=== PATIENT | female | born 1975 | race Caucasian/White ===

== ENCOUNTER 2017-07-24 20:34 | Inpatient (IN) ==
[2017-07-24 21:49] LABS: Basophils % 0.6 %; Eosinophils # 0.1 K/mcL (0.0-0.6); Eosinophils % 2.1 %; Hematocrit 34.5 % (35.3-44.9); Hemoglobin 11.4 g/dL (11.5-15.4); Immature Granulocytes % 0.4 % (0-4); Lymphocytes # 1.5 K/mcL (0.6-4.6); Lymphocytes % 32.2 %; Mean Corpuscular Hemoglobin 30.5 pg (28.0-33.3); Mean Corpuscular Volume 92.2 fL (83.0-100.0); Mean Platelet Volume 10.3 fL (9.4-12.4); Monocytes # 0.4 K/mcL (0.0-1.3); Monocytes % 7.4 %; Neutrophils # 2.7 K/mcL (1.6-8.9); Platelet Count 242 K/mcL (140-400); Red Blood Count 3.74 M/mcL (3.82-4.97); Red Cell Distribution Width 12.8 % (11.5-14.5); Segmented Neutrophils % 57.3 %
[2017-07-24 21:58] LABS: Calcium 9.2 mg/dL (8.6-10.8); Potassium 4.2 mEq/L (3.5-4.5)
[2017-07-25 02:16] LABS: Bilirubin,Urine Negative (Negative); Blood,Urine Negative (Negative); Clarity,Urine Clear (Clear); Color,Urine Yellow (Yellow); Glucose,Urine (UA) >=1000 mg/dL (Normal); Ketones,Urine 15 mg/dL (Negative); Leukocyte Esterase,Urine Negative (Negative); Nitrite,Urine Negative (Negative); Protein,Urine Negative (Neg-Trace); Specific Gravity,Urine > 1.030 (1.010-1.025); Urobilinogen,Urine Normal (Normal)
[2017-07-25] MEDS ORDERED: *HR* Dextrose 50 % in Water (Syg) 50 ML SYRINGE IVP PRN ×2 (02:24→07:01)
--- NOTE | 2017-07-25 02:27 | Emergency Department Note ---
Disposition Clinical Impression: Colitis, Failure of outpatient treatment, Hyperglycemia Condition: Fair Referrals: Nikolas Crenshaw MD [Primary Care Provider] - Forms: ED Satisfaction Letter Time of Disposition: 04:01 General Adult HPI - General Chief complaint: ED GI Bleed Stated complaint: gi bleed, abd pain Time Seen by Provider: 07/25/17 01:41 Source: patient Limitations: no limitations Nursing Notes Reviewed: Yes Vital Signs Reviewed: Yes - History of Present Illness HPI Narrative: Ms. Baum, a 41-year-old female, presents from home by POV for evaluation of abdominal pain. She was diagnosed 3 days ago with colitis by this department via CT and discharged with by mouth Cipro and Flagyl. She followed up with her primary care physician today. Her symptoms have not improved; her abdominal pain has actually worsened. She has bashir red blood per rectum. Additionally, because of her inability to tolerate by mouth intake, her blood glucose has been erratic. Patient is type I diabetic on a Medtronic insulin pump. PMH: Gastroparesis with gastric pacemaker. J-tube removed September 2016. ROS: Positive: Abdominal pain, hyperglycemia, chills, nausea, vomiting, inability to tolerate by mouth intake, hematochezia Pain Scale: 8 - Related Data Home Medications Medication Instructions Recorded Confirmed Dexilant 12/26/16 Insulin Pump Cartridge 12/26/16 Modifinil 12/26/16 Synthroid 12/26/16 Tylenol 12/26/16 Previous Rx's Medication Instructions Recorded Acetaminophen [Tylenol] 500 mg PO Q6HR PRN #20 tablet 07/14/17 Amoxicillin 875 mg PO BID #20 tablet 07/14/17 Fexofenadine/Pseudoephedrine 1 each PO BID #6 tab.er.12h 07/14/17 [Lizbeth-D 12 Hour Tablet] Fluticasone Propionate Nasal 1 spray NS DAILY #1 bottle 07/14/17 [Flonase] Magic Mouthwash [Magic Mouthwash 10 ml PO QID PRN #240 ml 07/14/17 BLM] Ciprofloxacin HCl [Cipro] 500 mg PO BID #20 tablet 07/19/17 HYDROcodone/Acet 5/325 mg [[place] 1 tab PO Q6H PRN #8 tab 07/19/17 5-325 mg] Ondansetron HCl [Zofran] 4 mg PO TID #21 tablet 07/19/17 metroNIDAZOLE [Metronidazole] 500 mg PO TID #30 tablet 07/19/17 Allergies Allergy/AdvReac Type Severity Reaction Status Date / Time azithromycin [From Zithromax] Allergy Rash Verified 07/19/17 15:13 metoclopramide [From Reglan] Allergy Rash Verified 07/19/17 15:13 prochlorperazine Allergy Rash Verified 07/19/17 15:13 [From Compazine] Sulfa (Sulfonamide Allergy Rash Verified 07/19/17 15:13 Antibiotics) All systems ED: reviewed and negative except as stated. Past Medical History - Past Medical History Medical history: Reports: diabetes, other Surgical history: Reports: hysterectomy, other Psychiatric history: Reports: anxiety, depression [employer] history: Reports: no [employer] history - Social History Smoking Status: Current every day smoker Smokeless Tobacco Status: No Alcohol use: Reports: none Drug use: Reports: none Physical Exam Vital Signs Reviewed General: Patient is alert, oriented, and in moderate distress from her abdominal pain. She is also shivering with chills. HEENT: No facial asymmetry. Head is normocephalic and atraumatic. PERRLA, EOMI. oral mucosa dry. Trachea midline. Cardiovascular: Heart tachycardic rate and regular rhythm without clicks, rubs, gallops, or murmurs. No JVD. PMI nondisplaced. Respiratory: Symmetric chest rise with good respiratory effort. Bilateral breath sounds are clear without wheezing, crackles, or rhonchi. Abdomen: Bowel sounds present normoactive x-4 quadrants. Abdomen is soft, nondistended, and nontender. No organomegaly noted. Psych: Patient's affect is appropriate for situation. - General Limitations: no limitations General appearance: alert, in no apparent distress Course Course Narrative: Patient presents from home for evaluation of continued abdominal pain. She was diagnosed with colitis in this department 6 days ago and discharged with by mouth Esdrasro and Flagyl. She properly followed up with her primary care physician 4 days ago. Her symptoms have since persisted and worsened. Patient has had decreased by mouth intake, chills, continued hematochezia. Patient is type I diabetic with gastric pacemaker secondary to gastroparesis. Patient was hypertensive and tachycardic on intake vitals. With fluids, pain control, nausea control, her heart rate lowered as did her blood pressure. Patient has mild anemia however this is consistent with her baseline. Patient has elevated creatinine-this appears to be slightly worse than her baseline. Likely secondary to dehydration secondary to anorexia secondary to her colitis. Patient's bedside blood glucose is in the 500s. Will provide 10 units regular insulin at this time. Her Medtronic insulin pump has been disconnected from her body and is on suspend. --> CT abdomen and pelvis with IV contrast dated 07/19 as read by radiology below: CT/CT abd pelvis w iv no oral IMPRESSION: Nonvisualization the appendix. Question wall thickening of the right and possibly transverse colon. Correlation for infectious or inflammatory colitis is recommended. D/ / Yamilex Plaza Cha, MD / Yamilex Plaza Cha, MD Interpreting Provider: Yamilex Plaza Cha, MD Vital Signs Temperature 98.5 F 07/24/17 20:36 Pulse Rate 113 07/24/17 20:36 Respiratory Rate 20 07/24/17 20:36 Blood Pressure 174/108 07/24/17 20:36 O2 Sat by Pulse Oximetry 100 07/24/17 20:36 Temperature 98.5 F 07/24/17 20:36 Pulse Rate 75 07/25/17 03:41 Respiratory Rate 18 07/25/17 03:41 Blood Pressure 124/75 07/25/17 03:41 O2 Sat by Pulse Oximetry 100 07/25/17 03:41 Oxygen Delivery Oxygen Delivery Room Air Medical Decision Making - Lab Data Result diagrams: 07/24/17 21:36 07/24/17 21:36 Lab Results 07/24/17 07/24/17 07/24/17 Range/Units 21:36 21:36 21:36 WBC 4.8 (4.3-11.1) K/mcL RBC 3.74 L (3.82-4.97) M/mcL Hgb 11.4 L (11.5-15.4) g/dL Hct 34.5 L (35.3-44.9) % MCV 92.2 (83.0-100.0) fL MCH 30.5 (28.0-33.3) pg MCHC 33.0 (31.6-35.5) g/dL RDW 12.8 (11.5-14.5) % Plt Count 242 (140-400) K/mcL MPV 10.3 (9.4-12.4) fL Immature Gran % 0.4 (0-4) % Seg Neutrophils % 57.3 % Lymphocytes % 32.2 % Monocytes % 7.4 % Eosinophils % 2.1 % Basophils % 0.6 % Neutrophils # 2.7 (1.6-8.9) K/mcL Lymphocytes # 1.5 (0.6-4.6) K/mcL Monocytes # 0.4 (0.0-1.3) K/mcL Eosinophils # 0.1 (0.0-0.6) K/mcL Basophils # 0.0 (0.0-0.2) K/mcL Sodium 136 (136-145) mEq/L Potassium 4.2 (3.5-4.5) mEq/L Chloride 103 (98-109) mEq/L Carbon Dioxide 23 (19-29) mEq/L BUN 15 (7-20) mg/dL Creatinine 1.28 H (0.57-1.11) mg/dL Est GFR ( Amer) 56 L (> 60) Est GFR (Non-Af Amer) 46 L (> 60) BUN/Creatinine Ratio 12 (6-26) Glucose 359 H (70-99) mg/dL POC Glucose (58-89) Calculated Osmolality 297 (280-300) Lactic Acid (0.5-2.2) mmol/L Calcium 9.2 (8.6-10.8) mg/dL Phosphorus (2.3-4.7) mg/dL Magnesium (1.6-2.6) mg/dL Beta-Hydroxybutyric Acd (0.02-0.27) mmol/L Beta HCG, Quant (0-4) mIU/ml Urine Color (Yellow) Urine Clarity (Clear) Urine pH (5.0-8.0) pH Units Ur Specific [place] (1.010-1.025) Urine Protein (Neg-Trace) mg/dL Urine Glucose (UA) (Normal) mg/dL Urine Ketones (Negative) mg/dL Urine Blood (Negative) Urine Nitrite (Negative) Urine Bilirubin (Negative) Urine Urobilinogen (Normal) mg/dL Ur Leukocyte Esterase (Negative) Blood Type A NEGATIVE Antibody Screen POSITIVE Antibody Identification Anti-K 07/25/17 07/25/17 07/25/17 Range/Units 02:06 02:20 02:21 WBC (4.3-11.1) K/mcL RBC (3.82-4.97) M/mcL Hgb (11.5-15.4) g/dL Hct (35.3-44.9) % MCV (83.0-100.0) fL MCH (28.0-33.3) pg MCHC (31.6-35.5) g/dL RDW (11.5-14.5) % Plt Count (140-400) K/mcL MPV (9.4-12.4) fL Immature Gran % (0-4) % Seg Neutrophils % % Lymphocytes % % Monocytes % % Eosinophils % % Basophils % % Neutrophils # (1.6-8.9) K/mcL Lymphocytes # (0.6-4.6) K/mcL Monocytes # (0.0-1.3) K/mcL Eosinophils # (0.0-0.6) K/mcL Basophils # (0.0-0.2) K/mcL Sodium (136-145) mEq/L Potassium (3.5-4.5) mEq/L Chloride (98-109) mEq/L Carbon Dioxide (19-29) mEq/L BUN (7-20) mg/dL Creatinine (0.57-1.11) mg/dL Est GFR ( Amer) (> 60) Est GFR (Non-Af Amer) (> 60) BUN/Creatinine Ratio (6-26) Glucose (70-99) mg/dL POC Glucose 498 H* 521 H* (58-89) Calculated Osmolality (280-300) Lactic Acid (0.5-2.2) mmol/L Calcium (8.6-10.8) mg/dL Phosphorus (2.3-4.7) mg/dL Magnesium (1.6-2.6) mg/dL Beta-Hydroxybutyric Acd (0.02-0.27) mmol/L Beta HCG, Quant (0-4) mIU/ml Urine Color Yellow (Yellow) Urine Clarity Clear (Clear) Urine pH 6.0 (5.0-8.0) pH Units Ur Specific [place] > 1.030 H (1.010-1.025) Urine Protein Negative (Neg-Trace) mg/dL Urine Glucose (UA) >=1000 H (Normal) mg/dL Urine Ketones 15 H (Negative) mg/dL Urine Blood Negative (Negative) Urine Nitrite Negative (Negative) Urine Bilirubin Negative (Negative) Urine Urobilinogen Normal (Normal) mg/dL Ur Leukocyte Esterase Negative (Negative) Blood Type Antibody Screen Antibody Identification 07/25/17 07/25/17 Range/Units 02:45 02:45 WBC (4.3-11.1) K/mcL RBC (3.82-4.97) M/mcL Hgb (11.5-15.4) g/dL Hct (35.3-44.9) % MCV (83.0-100.0) fL MCH (28.0-33.3) pg MCHC (31.6-35.5) g/dL RDW (11.5-14.5) % Plt Count (140-400) K/mcL MPV (9.4-12.4) fL Immature Gran % (0-4) % Seg Neutrophils % % Lymphocytes % % Monocytes % % Eosinophils % % Basophils % % Neutrophils # (1.6-8.9) K/mcL Lymphocytes # (0.6-4.6) K/mcL Monocytes # (0.0-1.3) K/mcL Eosinophils # (0.0-0.6) K/mcL Basophils # (0.0-0.2) K/mcL Sodium (136-145) mEq/L Potassium (3.5-4.5) mEq/L Chloride (98-109) mEq/L Carbon Dioxide (19-29) mEq/L BUN (7-20) mg/dL Creatinine (0.57-1.11) mg/dL Est GFR ( Amer) (> 60) Est GFR (Non-Af Amer) (> 60) BUN/Creatinine Ratio (6-26) Glucose (70-99) mg/dL POC Glucose (58-89) Calculated Osmolality (280-300) Lactic Acid 1.0 (0.5-2.2) mmol/L Calcium (8.6-10.8) mg/dL Phosphorus 3.4 (2.3-4.7) mg/dL Magnesium 1.5 L (1.6-2.6) mg/dL Beta-Hydroxybutyric Acd > 2.00 H (0.02-0.27) mmol/L Beta HCG, Quant < 1 (0-4) mIU/ml Urine Color (Yellow) Urine Clarity (Clear) Urine pH (5.0-8.0) pH Units Ur Specific [place] (1.010-1.025) Urine Protein (Neg-Trace) mg/dL Urine Glucose (UA) (Normal) mg/dL Urine Ketones (Negative) mg/dL Urine Blood (Negative) Urine Nitrite (Negative) Urine Bilirubin (Negative) Urine Urobilinogen (Normal) mg/dL Ur Leukocyte Esterase (Negative) Blood Type Antibody Screen Antibody Identification Attestation Statement - Attestation Attestation: I, Martin Aragon DO, examined this patient [id number] and my medical decision-making was reviewed with Dr. Leo Babb, Resident Physician. I agree with the documented findings, disposition and treatment plan as described except to the extent set forth below. Please see my progress notes for details. 41-year-old female presents emergency room with complaints of abdominal pain, bloody stool, nausea vomiting and generalized malaise. Seen here 5 days ago diagnosed with colitis with bloody stool. She started on Cipro and Flagyl. Has been trying to tolerate home medications but has not been able to do so. Her glucose continues to climb she is a type I diabetic. Patient has a history of diabetic ketoacidosis. She feels that she is dehydrated and weak. Labs ordered including CBC chemistry VBG, beta hydroxybutyric acid and urinalysis. Chest x-ray also ordered and resulted. Patient does not show any acute signs of gout diabetic ketoacidosis. Fluids to be given. Repeat CT imaging is not going to be done at this time secondary to recent evaluation and imaging study. Patient appears to failed outpatient treatment with poorly controlled diabetes at this time. Patient will require medical admission for evaluation and definitive management of diabetic related issues and poorly controlled colitis. Patient denies any abdominal pain physical exam is otherwise benign. Lungs are clear heart is regular abdomen is soft nontender nondistended with no guarding no rigidity and no peritoneal symptoms. Patient will be observed here in the emergency room until definitive treatment course is completed. See detailed documentation of physical exam, medical decision making process, medical intervention and consultation with the hospitalist for admission and the resident physician's note.
[2017-07-25] MEDS ORDERED: Insulin Human Regular 100 UNIT in 0.9 % Sodium Chloride 100 ML IVC SCH (02:30)
[2017-07-25] MEDS ORDERED: MetroNIDAZOLE 500 MG/100 ML 500 MG/100 ML BAG IVPB ONE (02:39)
[2017-07-25 03:03] LABS: Magnesium 1.5 mg/dL (1.6-2.6); Phosphorous 3.4 mg/dL (2.3-4.7)
[2017-07-25] MEDS: 0.9 % Sodium Chloride 1,000 ML IVC SCH ×3 (03:11→09:15)
[2017-07-25 03:18] LABS: Beta-Hydroxybutyric Acid > 2.00 mmol/L (0.02-0.27)
[2017-07-25] MEDS ORDERED: Insulin Human Regular 10 UNIT in 0.9 % Sodium Chloride 10 ML IV ONE (03:21)
[2017-07-25] MEDS ORDERED: Ondansetron 4 MG/2 ML VIAL IVP ONE (03:22)
[2017-07-25] MEDS ORDERED: *HR* Morphine 2 MG/ML SYRINGE IVP ONE (03:23)
[2017-07-25] MEDS ORDERED: *HR* FentaNYL (PF) 100 MCG/2 ML VIAL IVP ONE (04:25)
[2017-07-25] MEDS ORDERED: Acetaminophen 325 MG TABLET PO PRN (07:01)
[2017-07-25] MEDS ORDERED: Dextrose Gel 15 GM PO PRN ×2 (07:01)
[2017-07-25] MEDS ORDERED: D5% in Water 1,000 ML IVC PRN (07:01)
[2017-07-25] MEDS ORDERED: Ondansetron 4 MG/2 ML VIAL IVP PRN ×2 (07:01→16:47)
[2017-07-25] MEDS ORDERED: Naloxone 0.4 MG/ML INJ IVP PRN (07:01)
[2017-07-25] MEDS ORDERED: Magnesium Sulfate 2 GM in D5% in Water 100 ML IVPB ONE (07:04)
[2017-07-25 08:56] LABS: Chol/HDL Ratio 2.5 (0-4.9); Magnesium 1.4 mg/dL (1.6-2.6)
[2017-07-25 09:08] LABS: Basophils % 0.4 %; Eosinophils # 0.1 K/mcL (0.0-0.6); Eosinophils % 2.1 %; Hematocrit 36.7 % (35.3-44.9); Hemoglobin 11.7 g/dL (11.5-15.4); Immature Granulocytes % 0.2 % (0-4); Lymphocytes # 1.2 K/mcL (0.6-4.6); Mean Corpuscular HGB Conc 31.9 g/dL (31.6-35.5); Mean Corpuscular Hemoglobin 29.8 pg (28.0-33.3); Mean Corpuscular Volume 93.4 fL (83.0-100.0); Mean Platelet Volume 10.3 fL (9.4-12.4); Monocytes # 0.4 K/mcL (0.0-1.3); Monocytes % 7.8 %; Neutrophils # 3.1 K/mcL (1.6-8.9); Platelet Count 222 K/mcL (140-400); Red Blood Count 3.93 M/mcL (3.82-4.97); Red Cell Distribution Width 12.7 % (11.5-14.5); Segmented Neutrophils % 64.5 %
[2017-07-25 09:11] LABS: INR 0.9
[2017-07-25] MEDS: Pantoprazole 40 MG VIAL IVP SCH (09:14)
[2017-07-25 09:27] LABS: Hemoglobin A1C 10.3 %
[2017-07-25 09:30] LABS: Calcium 8.7 mg/dL (8.6-10.8); Potassium 4.3 mEq/L (3.5-4.5)
--- NOTE | 2017-07-25 10:49 | Internal Med History&Physical ---
Date of Encounter: 07/25/17 Time of Encounter: 10:47 Assessment and Plan (1) Colitis Current visit: No Status: Acute reviewed CT of abd results from 07/19/17 She does have transverse colitis mostly infectious .. also concerned for inflammartory too cont supportive and symptomatic care on IVF Clear liquid diet for now on PPI IV and PO analgesics PRN GI consulted for Colonoscopy in AM (2) Abdominal pain Current visit: No Status: Acute due to colitis Qualifiers: Abdominal location: lower abdomen, unspecified Qualified Code(s): R10.30 - Lower abdominal pain, unspecified (3) Failure of outpatient treatment Current visit: Yes Status: Acute (4) GI bleed Current visit: No Status: Acute mostly due to colitis so far stable Hb @ 11.7 cont close monitoring for now no need of transfusions Colonoscopy in AM Qualifiers: GI bleed type/associated pathology: unspecified gastrointestinal hemorrhage type Qualified Code(s): K92.2 - Gastrointestinal hemorrhage, unspecified (5) Diabetes mellitus Current visit: Yes Status: Chronic cont home Insulin pump Qualifiers: Diabetes mellitus type: type 1 Qualified Code(s): E10.9 - Type 1 diabetes mellitus without complications (6) Gastroparesis due to DM Current visit: Yes Status: Chronic s/p Gatsric pacemaker stable now Internal Medicine - H&P: HPI Chief complaint: Abdominal pain Admitted From: Emergency Dept Plans for Post Hospital Care: Home History of present illness: Ms. Baum is a 41 year old female with type 1 DM and severe gastroparesis with s /p gastric pacemaker inserted in [facility] now she presented to our ER 3 days ago with abdominal pain and dark colored stools x [address] of abd done which showed transverse colitis. Pt was d/c home with PO Cipro and Flagyl. Now She came back to ER again with worsening abd pain and had another episode of bright red blood per rectum. Her abd pain is tolerable with current pain meds. Denied any nausea / vomiting. Pt stated her abdominal pain was like twisting and radiating to her lower back, 8/10 in severity. Her pain was little relived with BM last night. Patient is type I diabetic on a Medtronic insulin pump. Past Med Surg Social Fam HX - Past Medical History Medical history: diabetes, other Psychiatric history: anxiety, depression - Past Surgical History Surgical History: hysterectomy, other - Social History Smoking Status: Current every day smoker Smokeless Tobacco Status: No Alcohol use: none Drug use: none - Family History Mother Hx Family Cardiac Disorders: Yes Hx Family Endocrine Disorder: Yes Internal Medicine - H&P: Meds Cholecalciferol (D-3) [Vitamin D] 5,000 unit PO DAILY 07/25/17 [History] Ciprofloxacin HCl [Cipro] 500 mg PO BID 07/25/17 [History] Dexlansoprazole [Dexilant] 60 mg PO DAILY 07/25/17 [History] Gabapentin [Neurontin] 300 mg PO HS 07/25/17 [History] Insulin ASPART [NovoLOG] 70 unit SQ DAILY 07/25/17 [History] Levothyroxine Sodium [Levoxyl] 75 mcg PO DAILY 07/25/17 [History] Modafinil [Provigil] 200 mg PO BID 07/25/17 [History] metroNIDAZOLE [Flagyl] 500 mg PO TID 07/25/17 [History] 3 Allergy/AdvReac Type Severity Reaction Status Date / Time azithromycin [From Zithromax] Allergy Rash Verified 07/19/17 15:13 metoclopramide [From Reglan] Allergy Rash Verified 07/19/17 15:13 prochlorperazine Allergy Rash Verified 07/19/17 15:13 [From Compazine] Sulfa (Sulfonamide Allergy Rash Verified 07/19/17 15:13 Antibiotics) All Systems PM: A 10-system review of systems was performed and is negative for pertinent findings except as documented above in the HPI. Review of systems: All the systems are reviewed everything is benign except the systems and symptoms I mentioned in the history of present illness - Constitutional Vitals: Temp Pulse Resp BP Pulse Ox 97.3 F L 91 16 100/59 99 07/25/17 06:51 07/25/17 06:51 07/25/17 06:51 07/25/17 06:51 07/25/17 06:51 General appearance: Present: A&O X 3, pleasant, no acute distress, answers questions appropriately - Head Head exam: Present: atraumatic, normal inspection - Respiratory Respiratory exam: Present: decreased breath sounds. Absent: rales, respiratory distress, rhonchi, wheezes - Cardiovascular Cardiovascular exam: Present: RRR, +S1, +S2. Absent: systolic murmur - GI/Abdominal GI/Abdominal exam: Present: normal bowel sounds, soft, tenderness (callie umbelical region and lower abdomen region). Absent: rebound, rigid - Extremities Exam Extremities exam: Absent: calf tenderness, pedal edema, tenderness - Neurological Exam Neurological exam: Present: alert, oriented X3 - Psychiatric Psychiatric exam: Present: normal affect, normal mood Internal Med - H&P Results - Labs CBC & Chem 7: 07/25/17 08:49 07/25/17 08:49 Labs: Short CBC 07/25/17 Range/Units 08:49 WBC 4.8 (4.3-11.1) K/mcL Hgb 11.7 (11.5-15.4) g/dL Hct 36.7 (35.3-44.9) % Plt Count 222 (140-400) K/mcL Neutrophils # 3.1 (1.6-8.9) K/mcL BMP 07/25/17 08:49 Sodium 137 Potassium 4.3 Chloride 106 Carbon Dioxide 18 L BUN 15 Creatinine 1.22 H Glucose 403 H Calcium 8.7
--- NOTE | 2017-07-25 11:39 | Gastroenterology Consult Note ---
<Jean Marie Barrera - Last Filed: 07/25/17 16:31> Date of Encounter: 07/25/17 Time of Encounter: 11:28 - Assessment and plan (1) Colitis Status: Acute Assessment and plan: CT A/P from 07/19/17 showed thickening of right and transverse colon, likely representing colitis. prior GI workup: capsule gonzales study on 09/17/13 showed abnormal pH. upper endoscopy on 09/17/[address] Singleton showed grade B reflux esophagitis, normal stomach and duodenum. colonoscopy on 11/14/12 showed external and internal hemmorrhoids, diverticulosis in sigmoid colon. Plan: clear liquid diet now. colonoscopy tomorrow. use magnesium citrate bowel prep. if patient cannot tolerate, use miralax bowel prep. (2) Abdominal pain Status: Acute Assessment and plan: plan as above. Qualifiers: Abdominal location: lower abdomen, unspecified Qualified Code(s): R10.30 - Lower abdominal pain, unspecified - Time Spent With Patient Total time spent is greater than 50% in coordination of care (as documented) at patient's floor/unit and/or counseling patient: GI History of Present Illness - Data of Consult Consult date: 07/25/17 Requesting Physician: Lelia Rich CNP - Consult Narrative History of present illness: Ms. Baum is a 41 year old female with PMHx of anxiety, depression, DM, gastroparesis, hypothyroidism. Patient had gastric pacemaker placed at [place]. She was here on 07/19 with chief complaint of abdominal pain. CT abdomen/pelvis showed bowel wall thickening in right and transverse colon. At that time, she was discharged home on cipro and flagyl and told to follow up with PCP. Patient returns today with worsening abdominal pain, and an episode of bright red blood per rectum. patient states that she had about two bowel movements with dark/black stools and clots of blood present. she report severe crampy adbominal pain. she denies illicit durg use. she is not on oral contraceptives (has hysterectomy), and does not take anything for migraines. she admits to nausea with one episode of vomiting. denies hematemesis. denies chest pain or shortness of breath, fever, chills. Past Med Surg Social Fam HX - Past Medical History Medical history: diabetes, other Psychiatric history: anxiety, depression - Past Surgical History Surgical History: hysterectomy, other - Social History Smoking Status: Current every day smoker Smokeless Tobacco Status: No Alcohol use: none Drug use: none - Family History Mother Hx Family Cardiac Disorders: Yes Hx Family Endocrine Disorder: Yes All systems PM: reviewed and no additional remarkable complaints except as stated - Constitutional Vitals: Temp Pulse Resp BP Pulse Ox 97.3 F L 91 16 100/59 99 07/25/17 06:51 07/25/17 06:51 07/25/17 06:51 07/25/17 06:51 07/25/17 06:51 General appearance: Present: A&O X 3, pleasant, no acute distress, answers questions appropriately - Head Head exam: Present: atraumatic, normocephalic - Neck Neck exam general surgery: Present: supple, trachea midline - Respiratory Respiratory exam: Present: CTAB - GI/Abdominal GI/Abdominal exam: Present: distended, soft, tenderness Additional comments: right lower quadrant and severe callie umbillical tenderness. - Extremities Exam Extremities exam: Absent: cyanotic, pedal edema - Neurological Exam Neurological exam: Present: alert, oriented X3, no focal deficits Results - Labs CBC & Chem 7: 07/25/17 08:49 07/25/17 08:49 Labs: Last Result Calcium 8.7 mg/dL (8.6-10.8) 07/25/17 08:49 Triglycerides 94 mg/dL (< 150) 07/25/17 08:20 Entire Visit Hgb 11.7 g/dL (11.5-15.4) 07/25/17 08:49 Hct 36.7 % (35.3-44.9) 07/25/17 08:49 PT 10.0 Seconds (9.4-12.1) 07/25/17 08:49 - ABG ABG results: PT/INR, D-dimer PT 10.0 Seconds (9.4-12.1) 07/25/17 08:49 Consult Discharge Plan - Plan Instructions: Diabetes Mellitus Type 2 in Adults (DC), Ulcerative Colitis (DC) Additional Instructions: Please follow up with your primary care provider within 1 week of discharge. Please follow up with Gastroenterology as scheduled. Please call their office on Monday if you have not heard about your pathology reports by then. Please resume all your home medications as prescribed. Please finish the course of oral antibiotics you were started on at the Emergency Department. Please return to the hospital if you experience any new or worsening symptoms. Referrals: Nikolas Crenshaw MD [Primary Care Provider] - 08/04/17 1:30 pm <Vicente Rees - Last Filed: 07/31/17 16:33> Date of Encounter: 07/21/17 - Time Spent With Patient Total time spent is greater than 50% in coordination of care (as documented) at patient's floor/unit and/or counseling patient: GI History of Present Illness - Data of Consult Requesting Physician: Lelia Rich CNP - Consult Narrative History of present illness: Ms. Baum is a 41 year old female - Constitutional Vitals: Temp Pulse Resp BP Pulse Ox 98.2 F 77 16 121/79 98 07/27/17 07:46 07/27/17 07:46 07/27/17 07:46 07/27/17 07:46 07/27/17 07:46 Results - Labs CBC & Chem 7: 07/27/17 07:41 07/27/17 07:41 Labs: Last Result Calcium 8.6 mg/dL (8.6-10.8) 07/27/17 07:41 Triglycerides 94 mg/dL (< 150) 07/25/17 08:20 Entire Visit Hgb 10.6 g/dL (11.5-15.4) L 07/27/17 07:41 Hct 31.9 % (35.3-44.9) L 07/27/17 07:41 PT 10.0 Seconds (9.4-12.1) 07/25/17 08:49 - ABG ABG results: PT/INR, D-dimer PT 10.0 Seconds (9.4-12.1) 07/25/17 08:49 - Attending Attestation I have personally examined Ms. Baum and interviewed her - she needs a colonoscopy to evaluate the etiology of her rectal bleeding. Agree with above note.
[2017-07-25] MEDS: MetroNIDAZOLE 500 MG/100 ML 500 MG/100 ML BAG IVPB SCH ×2 (11:55→19:46)
[2017-07-25] MEDS ORDERED: Insulin LISPRO 300 UNITS/3 ML VIAL SQ SCH (12:00)
[2017-07-25] MEDS ORDERED: *HR* OxyCODONE/APAP 5/325 TABLET PO PRN (16:00)
[2017-07-25] MEDS: *HR* Morphine 2 MG/ML SYRINGE IVP PRN (16:48)
--- NOTE | 2017-07-25 18:36 | Electrocardiograph Report ---
[address] [place] [id number] Test Date: 2017-07-25 Pat Name: Dee Baum Department: 104 Room: 3B Gender: F Manager Studio: : [id number] Requested By: Leo Babb Order Number: [id number] Reading MD: Jannie Fuentes Measurements Intervals [place] Rate: 103 P: 65 CO: 165 QRS: 46 QRSD: 75 T: 50 QT: 330 QTc: 390 Interpretive Statements SINUS TACHYCARDIA POSSIBLE LEFT ATRIAL ENLARGEMENT ABNORMAL RHYTHM ECG Electronically Signed On 07-25-2017 18:35:36 EDT by Jannie Fuentes
[2017-07-25] MEDS: *HR* Heparin 5,000 UNIT/ML VIAL SQ SCH (19:01)
[2017-07-26] MEDS: 0.9 % Sodium Chloride 1,000 ML IVC SCH ×5 (01:36→21:52)
[2017-07-26] MEDS ORDERED: 0.9 % Sodium Chloride 1,000 ML IVC ONE (03:41)
[2017-07-26] MEDS: MetroNIDAZOLE 500 MG/100 ML 500 MG/100 ML BAG IVPB SCH ×3 (04:30→21:53)
[2017-07-26] MEDS: *HR* Heparin 5,000 UNIT/ML VIAL SQ SCH ×2 (06:44→17:46)
[2017-07-26] MEDS: Pantoprazole 40 MG VIAL IVP SCH (08:07)
[2017-07-26] MEDS: *HR* Morphine 2 MG/ML SYRINGE IVP PRN (08:09)
[2017-07-26 08:33] LABS: BUN/Creatinine Ratio 10 (6-26); Blood Urea Nitrogen 8 mg/dL (7-20); Calcium 7.8 mg/dL (8.6-10.8); Carbon Dioxide 18 mEq/L (19-29); Chloride 110 mEq/L (98-109); Glucose 221 mg/dL (70-99); Magnesium 1.8 mg/dL (1.6-2.6); Osmolality,Calculated 287 (280-300); Potassium 4.6 mEq/L (3.5-4.5); Sodium 136 mEq/L (136-145); eGFR For African Americans > 60 (> 60); eGFR For Non-African Americans > 60 (> 60)
[2017-07-26 09:14] LABS: Basophils % 0.5 %; Eosinophils # 0.1 K/mcL (0.0-0.6); Eosinophils % 2.1 %; Hematocrit 31.3 % (35.3-44.9); Immature Granulocytes % 0.3 % (0-4); Lymphocytes # 0.9 K/mcL (0.6-4.6); Lymphocytes % 24.3 %; Mean Corpuscular HGB Conc 32.3 g/dL (31.6-35.5); Mean Corpuscular Hemoglobin 30.4 pg (28.0-33.3); Mean Corpuscular Volume 94.3 fL (83.0-100.0); Mean Platelet Volume 10.5 fL (9.4-12.4); Monocytes # 0.3 K/mcL (0.0-1.3); Monocytes % 8.9 %; Neutrophils # 2.5 K/mcL (1.6-8.9); Platelet Count 175 K/mcL (140-400); Red Blood Count 3.32 M/mcL (3.82-4.97); Red Cell Distribution Width 12.9 % (11.5-14.5); Segmented Neutrophils % 63.9 %
[2017-07-26 09:30] LABS: Hemoglobin 10.1 g/dL (11.5-15.4)
[2017-07-26] MEDS ORDERED: *HR* Propofol 500 MG/50 ML BOTTLE IVC ONE (10:35)
--- NOTE | 2017-07-26 13:31 | Anesthesia Evaluation PreOp ---
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 Diabetic Neuropathy maintained on Gabapentin) Other Medical History: Diabetes Type I (maintained on Insulin PUmp), Thyroid ( maintained on Synthroid), GERD (Gastroparesis re:type I DM s/p Gastric Pacemaker ) Anesthesia History: No Prior Anesthetic Complications, Past Anesthesia ( HYsterectomy) Alcohol Use: none Drug use: none Medications and Allergies Cholecalciferol (D-3) [Vitamin D] 5,000 unit PO DAILY 07/25/17 [History] Ciprofloxacin HCl [Cipro] 500 mg PO BID 07/25/17 [History] Dexlansoprazole [Dexilant] 60 mg PO DAILY 07/25/17 [History] Gabapentin [Neurontin] 300 mg PO HS 07/25/17 [History] Insulin ASPART [NovoLOG] 70 unit SQ DAILY 07/25/17 [History] Levothyroxine Sodium [Levoxyl] 75 mcg PO DAILY 07/25/17 [History] Modafinil [Provigil] 200 mg PO BID 07/25/17 [History] metroNIDAZOLE [Flagyl] 500 mg PO TID 07/25/17 [History] 3 Allergy/AdvReac Type Severity Reaction Status Date / Time azithromycin [From Zithromax] Allergy Rash Verified 07/19/17 15:13 metoclopramide [From Reglan] Allergy Rash Verified 07/19/17 15:13 prochlorperazine Allergy Rash Verified 07/19/17 15:13 [From Compazine] Sulfa (Sulfonamide Allergy Rash Verified 07/19/17 15:13 Antibiotics) - Meds/Allergy Pre-op Review Medications Reviewed: Yes Allergies Reviewed: Yes Beta Blockers on Current Med List: No Anesthesia Results - Labs 07/26/17 07:47 07/26/17 07:47 Laboratory Results Anesthesia Exam Vital Signs Temp Pulse Resp BP Pulse Ox 07/26/17 13:15 81 16 109/62 99 07/26/17 11:56 98.3 F 77 16 112/65 98 07/26/17 06:53 98.5 F 92 16 106/62 99 07/26/17 04:47 84 98/61 07/26/17 04:45 79 93/57 07/25/17 22:52 98.1 F 83 16 98/59 99 07/25/17 19:59 98.2 F 83 16 104/67 99 07/25/17 14:36 98.3 F 82 16 96/55 97 Intake and Output 07/25/17 07/26/17 07/26/17 23:59 07:59 15:59 Intake Total 300 / 300 2100 / 2100 Balance 300 / 300 2100 / 2100 Intake: IV Fluids 300 / 300 2100 / 2100 0.9 % Sodium Chloride 1,000 ML 2000 / 2000 @ 3750 mls/hr IVC .Q16M ONE Rx# :[id number] Cipro Premix 400 MG/200 ML 400 200 / 200 mg In 200 ml @ 200 mls/hr IVPB Q12HR NELLY Rx#:[id number] Flagyl Premix 500 MG/100 ML 500 100 / 100 100 / 100 mg In 100 ml @ 100 mls/hr IVPB Q8H NE[facility] Rx#:[id number] Other: Blood Glucose* 254 90 101 Anesthesia Assess/Plan ASA Score: 3 (type I DM, Gastroparesis, Hypothyroidism) Modified Estrella Scale for Level of Consciousness: Cooperative, oriented, and tranquil Anesthetic Plan: General Monitoring Plan: Standard Monitors Recovery Plan: PACU Anes Supervising Prov Stmt: Pt seen/evaluated, R&B Discussed, questions answered and consent obtained. Kady Villegas MD
--- NOTE | 2017-07-26 17:24 | Internal Med Progress Note ---
<SalmapadmajaKali perez - Last Filed: 07/26/17 17:21> Date of Encounter: 07/26/17 Time of Encounter: 08:30 - Assessment and plan (1) Colitis Current Visit: No Status: Acute Assessment and plan: Patient was recently seen and evaluated for same symptoms. Patient had CT abd on 07/19/17 that showed: "questionable wall thickening of the right and possibly transverse colon." She was discharged home on [place], Cipro, and flagyl She presented back yesterday with continued pain. Colonoscopy was performed today which was unremarkable. Biopsies pending. Continue PPI, Zofran, pain medications Continue Cipro and Flagyl (2) Abdominal pain Current Visit: No Status: Acute Assessment and plan: Secondary to Colitis continue supportive treatment. Qualifiers: Abdominal location: lower abdomen, unspecified Qualified Code(s): R10.30 - Lower abdominal pain, unspecified (3) GI bleed Current Visit: No Status: Acute Assessment and plan: Secondary to colitis. Hgb 10.1 today was 11.7 yesterday continue to monitor colonoscopy today showed no signs of bleeding. Qualifiers: GI bleed type/associated pathology: unspecified gastrointestinal hemorrhage type Qualified Code(s): K92.2 - Gastrointestinal hemorrhage, unspecified (4) Failure of outpatient treatment Current Visit: Yes Status: Acute Assessment and plan: See Colitis (5) Diabetes mellitus Current Visit: Yes Status: Chronic Assessment and plan: Chronic, Stable. continue patient's insulin pump Qualifiers: Diabetes mellitus type: type 1 Qualified Code(s): E10.9 - Type 1 diabetes mellitus without complications (6) Gastroparesis due to DM Current Visit: Yes Status: Chronic Assessment and plan: Chronic, stable. patient s/p gastric pacemaker - Subjective Interval history: Patient reports abdominal pain. She had colonoscopy today which was normal in appearance. Pathology pending. - Constitutional Vitals: Temp Pulse Resp BP Pulse Ox 98.1 F 90 16 97/64 99 07/26/17 15:37 07/26/17 15:37 07/26/17 15:37 07/26/17 15:37 07/26/17 15:37 General appearance: Present: A&O X 3, pleasant, no acute distress, answers questions appropriately - Head Head exam: Present: atraumatic, normocephalic - Eye Eye exam: Present: PERRL, conjuntiva pink, sclera anicteric Pupils: Present: PERRL - Neck Neck exam general surgery: Present: supple, trachea midline - Respiratory Respiratory exam: Present: CTAB. Absent: accessory muscle use, rales, rhonchi, wheezes - Cardiovascular Cardiovascular exam: Present: RRR, +S1, +S2. Absent: diastolic murmur, gallop, rubs, systolic murmur - GI/Abdominal GI/Abdominal exam: Present: distended, mass (patient has gastric pacemaker in RLQ for gastroparesis. ), normal bowel sounds, soft, tenderness (diffuse), no peritoneal signs - Extremities Exam Extremities exam: Present: warm. Absent: calf tenderness, cyanotic, pedal edema - Neurological Exam Neurological exam: Present: alert, oriented X3. Absent: facial droop, speech deficit - Skin Skin exam: Present: dry, intact Internal Medicine: Result - Labs CBC & Chem 7: 07/26/17 07:47 07/26/17 07:47 Labs: Short CBC 07/26/17 Range/Units 07:47 WBC 3.8 L (4.3-11.1) K/mcL Hgb 10.1 L D (11.5-15.4) g/dL Hct 31.3 L (35.3-44.9) % Plt Count 175 (140-400) K/mcL Neutrophils # 2.5 (1.6-8.9) K/mcL BMP 07/26/17 07:47 Sodium 136 Potassium 4.6 H Chloride 110 H Carbon Dioxide 18 L BUN 8 Creatinine 0.84 Glucose 221 H Calcium 7.8 L - ABG Interpretation ABG results: PT/INR, D-dimer PT 10.0 Seconds (9.4-12.1) 07/25/17 08:49 Consult Discharge Plan - Plan Referrals: Nikolas Crenshaw MD [Primary Care Provider] - <Maged Romero - Last Filed: 07/26/17 17:55> Date of Encounter: 07/26/17 - Constitutional Vitals: Temp Pulse Resp BP Pulse Ox 98.1 F 90 16 97/64 99 07/26/17 15:37 07/26/17 15:37 07/26/17 15:37 07/26/17 15:37 07/26/17 15:37 Internal Medicine: Result - Labs CBC & Chem 7: 07/26/17 07:47 07/26/17 07:47 Labs: Short CBC 07/26/17 Range/Units 07:47 WBC 3.8 L (4.3-11.1) K/mcL Hgb 10.1 L D (11.5-15.4) g/dL Hct 31.3 L (35.3-44.9) % Plt Count 175 (140-400) K/mcL Neutrophils # 2.5 (1.6-8.9) K/mcL BMP 07/26/17 07:47 Sodium 136 Potassium 4.6 H Chloride 110 H Carbon Dioxide 18 L BUN 8 Creatinine 0.84 Glucose 221 H Calcium 7.8 L - ABG Interpretation ABG results: PT/INR, D-dimer PT 10.0 Seconds (9.4-12.1) 07/25/17 08:49 - Attending Attestation I examined this patient and my medical decision-making was reviewed with the Resident Physician. I agree with the documented findings, disposition and treatment plan as described except to the extent set forth below.
[2017-07-27] MEDS ORDERED: MetroNIDAZOLE 500 MG/100 ML 500 MG/100 ML BAG IVPB SCH (05:00)
[2017-07-27] MEDS: *HR* Heparin 5,000 UNIT/ML VIAL SQ SCH (05:39)
--- NOTE | 2017-07-27 07:16 | Discharge Summary ---
<Kali Barnes - Last Filed: 07/27/17 11:25> Date of Encounter: 07/27/17 Time of Encounter: 08:30 - Discharge Diagnosis (1) Colitis Priority: Secondary Status: Inactive (2) Abdominal pain Priority: Primary Status: Inactive Qualifiers: Abdominal location: lower abdomen, unspecified Qualified Code(s): R10.30 - Lower abdominal pain, unspecified (3) GI bleed Priority: Secondary Status: Inactive Qualifiers: GI bleed type/associated pathology: unspecified gastrointestinal hemorrhage type Qualified Code(s): K92.2 - Gastrointestinal hemorrhage, unspecified (4) Failure of outpatient treatment Priority: Secondary Status: Acute (5) Diabetes mellitus Priority: Secondary Status: Chronic Qualifiers: Diabetes mellitus type: type 1 Diabetes mellitus complication status: with other specified complication Qualified Code(s): E10.69 - Type 1 diabetes mellitus with other specified complication (6) Gastroparesis due to DM Priority: Secondary Status: Chronic - Discharge Medications Home Medications: Cholecalciferol (D-3) [Vitamin D] 5,000 unit PO DAILY 07/25/17 [History] Ciprofloxacin HCl [Cipro] 500 mg PO BID 07/25/17 [History] Dexlansoprazole [Dexilant] 60 mg PO DAILY 07/25/17 [History] Gabapentin [Neurontin] 300 mg PO HS 07/25/17 [History] Insulin ASPART [NovoLOG] 70 unit SQ DAILY 07/25/17 [History] Levothyroxine Sodium [Levoxyl] 75 mcg PO DAILY 07/25/17 [History] Modafinil [Provigil] 200 mg PO BID 07/25/17 [History] metroNIDAZOLE [Flagyl] 500 mg PO TID 07/25/17 [History] Allergies/Adverse Reactions: 3 Allergy/AdvReac Type Severity Reaction Status Date / Time azithromycin [From Zithromax] Allergy Rash Verified 07/19/17 15:13 metoclopramide [From Reglan] Allergy Rash Verified 07/19/17 15:13 prochlorperazine Allergy Rash Verified 07/19/17 15:13 [From Compazine] Sulfa (Sulfonamide Allergy Rash Verified 07/19/17 15:13 Antibiotics) Procedures/tests Complete & Pending: Colonoscopy: " Impression The entire examined colon is normal. Biopsied. The examined portion of the ileum was normal." Date of admission: 07/25/17 04:57 Primary care physician: Nikolas Crenshaw MD Consults: 07/25/17 11:04 Consult to Gastroenterology [CONS] Routine Consulting Provider: Gastroenterology [place] Reason for Consult: Acute GI bleed and COlitis Call Completed: Yes Discharging clinician: Kali Barnes Anticipated date of discharge: 07/27/17 - Patient Status Disposition: Home, Self-Care Condition: Good Functional capacity at discharge: independent ambulation Overall status at discharge: patient is progressing back to baseline - Discharge Instructions Instructions: Diabetes Mellitus Type 2 in Adults (DC), Ulcerative Colitis (DC) Follow Up With: Nikolas Crenshaw MD [Primary Care Provider] - 08/04/17 1:30 pm Additional Instructions: Please follow up with your primary care provider within 1 week of discharge. Please follow up with Gastroenterology as scheduled. Please call their office on Monday if you have not heard about your pathology reports by then. Please resume all your home medications as prescribed. Please finish the course of oral antibiotics you were started on at the Emergency Department. Please return to the hospital if you experience any new or worsening symptoms. - Diet and Activity Activity: resume usual activities as tolerated Diet: advance to your usual diet, diabetic diet Interval History: Patient reports feeling much better and being eager to go home. Hospital course: Ms. Baum is a 41 year old female c PMHx of type 1 DM and severe gastroparesis with s/p gastric pacemaker who reported to the hospital for worsening abdominal pain and some blood per rectum. Patient as evaluated int he ED on 07/[address] scan that showed colitis. She was discharged home with Cipro and flagyl. She returned several days later due to worsening abdominal pain. She was admitted to the hospital and had bowel prep and colonoscopy. Colonoscopy was normal appearing and biopsies were taken. Pathology is pending. She reported improvement in her symptoms and her blood counts were stable. She was discharged home to finish course of cipro and flagyl. - Time Spent with Patient Total time spent providing and/or coordinating discharge services: 40 minutes - Constitutional Vitals: Temp Pulse Resp BP Pulse Ox 98.0 F 76 15 90/59 98 07/27/17 04:28 07/27/17 04:28 07/27/17 04:28 07/27/17 04:28 07/27/17 04:28 General appearance: Present: A&O X 3, pleasant, no acute distress, answers questions appropriately - Head Head exam: Present: atraumatic, normocephalic - Eye Eye exam: Present: PERRL, conjuntiva pink, sclera anicteric Pupils: Present: PERRL - Neck Neck exam general surgery: Present: supple, trachea midline - Respiratory Respiratory exam: Present: CTAB. Absent: accessory muscle use, rales, rhonchi, wheezes - Cardiovascular Cardiovascular exam: Present: RRR, +S1, +S2. Absent: diastolic murmur, gallop, rubs, systolic murmur - GI/Abdominal GI/Abdominal exam: Present: mass (patient has gastric pacemaker in RLQ of abd. ) , normal bowel sounds, soft, no peritoneal signs. Absent: distended, tenderness - Extremities Exam Extremities exam: Present: warm. Absent: calf tenderness, cyanotic, pedal edema - Neurological Exam Neurological exam: Present: alert, oriented X3, no focal deficits. Absent: facial droop, speech deficit - Skin Skin exam: Present: dry, intact <Heather,Maged P - Last Filed: 07/27/17 18:05> Date of Encounter: 07/27/17 Date of admission: 07/25/17 04:57 Primary care physician: Nikolas Crenshaw MD Consults: 07/25/17 11:04 Consult to Gastroenterology [CONS] Routine Consulting Provider: [facility]astroenter[facility] [place] Reason for Consult: Acute GI bleed and COlitis Call Completed: Yes Hospital course: Ms. Baum is a 41 year old female - Time Spent with Patient Total time spent providing and/or coordinating discharge services: - Constitutional Vitals: Temp Pulse Resp BP Pulse Ox 98.2 F 77 16 121/79 98 07/27/17 07:46 07/27/17 07:46 07/27/17 07:46 07/27/17 07:46 07/27/17 07:46 - Attending Attestation I examined this patient and my medical decision-making was reviewed with the Resident Physician. I agree with the documented findings, disposition and treatment plan as described except to the extent set forth below.
[2017-07-27 07:48] VITALS: BP 121/79
[2017-07-27 08:11] LABS: Basophils % 0.5 %; Eosinophils # 0.1 K/mcL (0.0-0.6); Hematocrit 31.9 % (35.3-44.9); Hemoglobin 10.6 g/dL (11.5-15.4); Immature Granulocytes % 0.3 % (0-4); Lymphocytes # 1.2 K/mcL (0.6-4.6); Lymphocytes % 31.9 %; Mean Corpuscular HGB Conc 33.2 g/dL (31.6-35.5); Mean Corpuscular Hemoglobin 30.8 pg (28.0-33.3); Mean Corpuscular Volume 92.7 fL (83.0-100.0); Mean Platelet Volume 10.6 fL (9.4-12.4); Monocytes # 0.3 K/mcL (0.0-1.3); Monocytes % 8.8 %; Platelet Count 182 K/mcL (140-400); Red Blood Count 3.44 M/mcL (3.82-4.97); Red Cell Distribution Width 12.9 % (11.5-14.5); Segmented Neutrophils % 55.5 %
[2017-07-27 08:26] LABS: BUN/Creatinine Ratio 10 (6-26); Blood Urea Nitrogen 8 mg/dL (7-20); Calcium 8.6 mg/dL (8.6-10.8); Carbon Dioxide 23 mEq/L (19-29); Chloride 108 mEq/L (98-109); Glucose 102 mg/dL (70-99); Osmolality,Calculated 283 (280-300); Potassium 4.1 mEq/L (3.5-4.5); Sodium 137 mEq/L (136-145); eGFR For African Americans > 60 (> 60); eGFR For Non-African Americans > 60 (> 60)
== END 2017-07-27 10:36 | disposition home or self-care (01) | DRG 392 ==
LOC: EMEROO 20:34 → 3BNU 20:34 → OBSVTOIN 07-25 04:57 → 3BNU 07-25 06:27
PROVIDERS: ADMIT Family Medicine; ATTEND Registered Nurse
PROC: ENDOCBX (2017-07-26 16:00)

== ENCOUNTER 2019-05-19 12:07 | Inpatient (IN) ==
[2019-05-19] MEDS ORDERED: Isovue-370 500 ML BOTTLE IVP ONE (12:32)
--- NOTE | 2019-05-19 12:49 | Emergency Department Note ---
Disposition Clinical Impression: Abscess of right foot Cellulitis Qualifiers: Site of cellulitis: extremity Site of cellulitis of extremity: lower extremity Laterality: right Qualified Code(s): L03.115 - Cellulitis of right lower limb Disposition: Admitted As Inpatient Time of Disposition: 15:43 Extremity Problem HPI - General Chief complaint: ED Extremity Problem,Nontraumatic Stated complaint: RLE problem Time Seen by Provider: 05/19/19 12:27 Source: patient Mode of arrival: private vehicle Limitations: no limitations Nursing Notes Reviewed: Yes Vital Signs Reviewed: Yes - History of Present Illness HPI Narrative: Patient is a 43-year-old female with a past medical history including type 1 diabetes mellitus, depression and anxiety, presenting with a chief complaint of right toe infection. She states for the past month, she has been battling a right pinky toe infection. She states she has been on 2 different courses of antibiotics. She has followed up with podiatry, Dr. Winkler. She is currently not on any antibiotics. She states yesterday evening her right pinky toe nail fell off. This morning she woke up with her right pinky toe swollen, red and purulent drainage at the distal tip. She also complains of right toe pain when the nail came off. She states the toe feels numb. She states throughout the month, she has had intermittent fevers but has not had a fever in the past 48 hours. She denies any headache, chest pain, shortness of breath, abdominal pain, nausea or vomiting, diarrhea. Pain Scale: 8 - Related Data Home Medications Medication Instructions Recorded Confirmed Cholecalciferol (D-3) [Vitamin D] 5,000 unit PO DAILY 07/25/17 07/25/17 Dexlansoprazole [Dexilant] 60 mg PO DAILY 07/25/17 07/25/17 Gabapentin [Neurontin] 300 mg PO HS 07/25/17 07/25/17 Insulin ASPART [NovoLOG] 70 unit SQ DAILY 07/25/17 07/25/17 Levothyroxine Sodium [Levoxyl] 75 mcg PO DAILY 07/25/17 07/25/17 Modafinil [Provigil] 200 mg PO BID 07/25/17 07/25/17 Previous Rx's Medication Instructions Recorded Ondansetron ODT [Zofran ODT] 4 mg SL Q6HR PRN #10 tab.rapdis 10/03/17 Guaifenesin/Dm/Pseudoephedrine 1 each PO Q4HR PRN #10 tablet 09/10/18 [Capmist Dm Tablet] Ondansetron [Zofran ODT] 8 mg SL QID PRN #15 tab.rapdis 02/22/19 Allergies Allergy/AdvReac Type Severity Reaction Status Date / Time azithromycin [From Zithromax] Allergy Rash Verified 12/20/18 14:37 metoclopramide [From Reglan] Allergy Rash Verified 12/20/18 14:37 prochlorperazine Allergy Rash Verified 12/20/18 14:37 [From Compazine] Sulfa (Sulfonamide Allergy Rash Verified 12/20/18 14:37 Antibiotics) All systems ED: reviewed and negative except as stated. Review of Systems: As Per HPI Constitutional: Reports: fever, chills Cardiovascular: Denies: chest pain, palpitations Respiratory: Denies: cough, dyspnea Gastrointestinal: Denies: abdominal pain, nausea, vomiting, diarrhea Musculoskeletal: Reports: other (right pinky toe pain) Neurological: Denies: headache, weakness Past Medical History - Past Medical History Attestation: Yes The following information was validated with the patient. 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 Absent: respiratory distress, wheezes - Cardiovascular Cardiovascular exam: Present: regular rate, normal rhythm, normal heart sounds - Abdominal Exam Abdominal exam: Present: soft, Non-Tender. Absent: distention - Extremities Exam Extremities exam: Present: normal capillary refill, other (Right fifth toe with swelling and erythema, there is no toenail, the distal anterior portion of the toe has purulent drainage, no necrosis is noted normal dorsalis pedis pulse) - Neurological Exam Neurological exam: Present: alert, oriented X3 - Psychiatric Psychiatric exam: Present: normal affect, normal mood - Skin Skin exam: Present: warm, dry. Absent: diaphoresis, pallor Course Vital Signs Temperature 98.3 F 05/19/19 12:08 Pulse Rate 96 05/19/19 12:08 Respiratory Rate 20 05/19/19 12:08 Blood Pressure 147/89 05/19/19 12:08 O2 Sat by Pulse Oximetry 99 05/19/19 12:08 Temperature 98.3 F 05/19/19 12:37 Pulse Rate 96 05/19/19 12:37 Respiratory Rate 20 05/19/19 12:37 Blood Pressure 147/89 05/19/19 12:37 O2 Sat by Pulse Oximetry 99 05/19/19 12:37 Oxygen Delivery Oxygen Delivery Room Air Extremity Problem, Nontraumati - MDM Narrative Medical decision making narrative: Patient has been on 2 different antibiotic courses for a right fifth toe. There is concern for cellulitis and infection, need to rule out osteomyelitis as well. We will obtain CT with IV contrast of the right foot. We will obtain CBC, BMP, lactate, blood cultures. She will likely require admission for failed outpatient treatment and IV antibiotics. She will need podiatry consultation as well. She is afebrile vital stable at this time. 15:[address] of her foot reviewed. There is an irregular fluid collection in the soft tissues plantar to the fifth MTP joint consistent with abscess and adjacent cellulitis. Podiatry will be paged. Patient will be started on vancomycin and Zosyn. She will be admitted to hospitalist service. Discussed with Dr. Ruiz, Podiatry, at 15:10, agrees with plan. COnsult placed. Hospitalist paged. 15:[address] Ochoa, hospitalist, who accepts admission. - Medical Records Medical records reviewed: Yes I reviewed the patient's medical records. - Lab Data Lab results reviewed: Yes I reviewed the patient's lab results. Result diagrams: 05/19/19 12:50 05/19/19 12:50 Lab Results 05/19/19 05/19/19 05/19/19 Range/Units 12:50 12:50 12:50 WBC 5.1 (4.3-11.1) K/mcL RBC 3.67 L (3.82-4.97) M/mcL Hgb 11.1 L (11.5-15.4) g/dL Hct 33.7 L (35.3-44.9) % MCV 91.8 (83.0-100.0) fL MCH 30.2 (28.0-33.3) pg MCHC 32.9 (31.6-35.5) g/dL RDW 12.9 (11.5-14.5) % Plt Count 195 (140-400) K/mcL MPV 10.5 (9.4-12.4) fL Immature Gran % 0.4 (0-4) % Seg Neutrophils % 57.6 % Lymphocytes % 27.9 % Monocytes % 10.3 % Eosinophils % 3.2 % Basophils % 0.6 % Neutrophils # 2.9 (1.6-8.9) K/mcL Lymphocytes # 1.4 (0.6-4.6) K/mcL Monocytes # 0.5 (0.0-1.3) K/mcL Eosinophils # 0.2 (0.0-0.6) K/mcL Basophils # 0.0 (0.0-0.2) K/mcL Sodium 136 (136-145) mEq/L Potassium 5.0 (3.5-5.1) mEq/L Chloride 106 (98-107) mEq/L Carbon Dioxide 25 (23-29) mEq/L BUN 18 (6-20) mg/dL Creatinine 1.06 (0.60-1.20) mg/dL Est GFR ( Amer) > 60 (> 60) Est GFR (Non-Af Amer) 57 L (> 60) BUN/Creatinine Ratio 17 (6-26) Glucose 204 H (70-105) mg/dL Calculated Osmolality 290 (280-300) Lactic Acid 0.9 (0.5-2.2) mmol/L Calcium 9.2 (8.6-10.3) mg/dL - Radiology Data Radiology results reviewed: Yes I reviewed the patient's radiology results. Foot CT 05/19/19 12:32 IMPRESSION: 1. Irregular fluid collection in the soft tissues plantar to the 5th MTP joint measuring approximately 14 x 7 x 10 mm compatible with an abscess and adjacent cellulitis. 2. No CT evidence of osteomyelitis or other acute osseous abnormality. D/ / Anthony Jalloh MD / Anthony Jalloh MD Interpreting Provider: Anthony Jalloh MD Attestation Statement - Attestation Attestation: Patient was seen with resident physician. I reviewed the history, physical, assessment and plan, and agree with the findings. I also personally evaluated this patient and had [id number] time with this patient. 43-year-old female presents emergency Department chief complaint that her right toe tip has fallen off. Patient states she has been treated for infections there. She is diabetic and has diabetic neuropathy. She is most recently on an antibiotic not that long ago. She said though she woke up today and the tip was essentially gone including the nail. She is also noted that the PTT toe is swollen and more erythematous than usual. She denies fevers chills no chest pain or short of breath. No nausea or vomiting. Review of systems as above remainder negative. Physical exam vital signs are stable. ENT is unremarkable. Heart regular rate. Lungs clear. Adamant soft nontender. Extremities patient has ears to be an infection like right pinky toe. The nail is gone as is the skin at the distal portion of that toe. There is no bone that exposed at this time. The toe itself is also erythematous red and swollen. There is also small lesion underneath the toe on that foot. Distal pulses are intact throughout. Neurologically intact with decreased sensation in the lower extremities which is usual for her. Skin no other rashes. Psych normal. ED course. We will get a CT scan that lower extremity to look for osteo-. CT did not demonstrate osteomyelitis. We did speak with podiatry for consultation as an inpatient. We will start her on IV antibiotics. We will admit to the hospitalist service for additional evaluation and treatment. We contacted the hospitalist service agreed to accept the patient. I agree with the resident physician assessment and plan.
[2019-05-19 13:08] LABS: Basophils % 0.6 %; Eosinophils # 0.2 K/mcL (0.0-0.6); Eosinophils % 3.2 %; Hematocrit 33.7 % (35.3-44.9); Hemoglobin 11.1 g/dL (11.5-15.4); Immature Granulocytes % 0.4 % (0-4); Lymphocytes # 1.4 K/mcL (0.6-4.6); Lymphocytes % 27.9 %; Mean Corpuscular HGB Conc 32.9 g/dL (31.6-35.5); Mean Corpuscular Hemoglobin 30.2 pg (28.0-33.3); Mean Corpuscular Volume 91.8 fL (83.0-100.0); Mean Platelet Volume 10.5 fL (9.4-12.4); Monocytes # 0.5 K/mcL (0.0-1.3); Monocytes % 10.3 %; Neutrophils # 2.9 K/mcL (1.6-8.9); Platelet Count 195 K/mcL (140-400); Red Blood Count 3.67 M/mcL (3.82-4.97); Red Cell Distribution Width 12.9 % (11.5-14.5); Segmented Neutrophils % 57.6 %; White Blood Count 5.1 K/mcL (4.3-11.1)
[2019-05-19 13:25] LABS: BUN/Creatinine Ratio 17 (6-26); Blood Urea Nitrogen 18 mg/dL (6-20); Calcium 9.2 mg/dL (8.6-10.3); Carbon Dioxide 25 mEq/L (23-29); Chloride 106 mEq/L (98-107); Glucose 204 mg/dL (70-105); Osmolality,Calculated 290 (280-300); Sodium 136 mEq/L (136-145); eGFR For African Americans > 60 (> 60); eGFR For Non-African Americans 57 (> 60)
[2019-05-19] MEDS ORDERED: Piperacillin/Tazobactam 3.375 GM in 0.9 % Sodium Chloride Mini Bag 100 ML IVPB ONE (15:02)
[2019-05-19] MEDS ORDERED: Acetaminophen 325 MG TABLET PO PRN (15:50)
[2019-05-19] MEDS ORDERED: Ondansetron 4 MG/2 ML VIAL IVP PRN (15:50)
[2019-05-19] MEDS ORDERED: Naloxone 0.4 MG/ML INJ IVP PRN (15:50)
[2019-05-19] MEDS ORDERED: Ketorolac 30 MG/ML VIAL IVP PRN (15:50)
[2019-05-19] MEDS ORDERED: *HR* Dextrose 50 % in Water (Syg) 50 ML SYRINGE IVP PRN (15:53)
[2019-05-19] MEDS ORDERED: Dextrose Gel 15 GM/37.5 ML TUBE PO PRN ×2 (15:53)
[2019-05-19] MEDS ORDERED: D5% in Water 1,000 ML IVC PRN (15:53)
--- NOTE | 2019-05-19 16:03 | Internal Med History&Physical ---
Date of Encounter: 05/19/19 Time of Encounter: 15:35 Internal Medicine - H&P: HPI Chief complaint: right foot pain Admitted From: Home Plans for Post Hospital Care: Home History of present illness: Ms. Baum is a 43 year old female with PMH of type I DM on insulin therapy, peripheral neuropathy, severe gastroparesis with s/p gastric pacemaker, hypothyroidism, narcolepsy, hypertension, anxiety who presents to the ER for evaluation of severe right foot pain. Patient is seen and examined with family present at bedside. Patient states she has been undergoing medical therapy with Dr. Winkler for the last month for an infected right fifth toe ulcer. She reports of finishing two different abx courses (first with Doxycycline, followed by amoxicillin). Pt states she started noticing a wet weeping wound on her fifth toe on the right foot for the last 48 hours associated with fever and chills. She states the pain became severe which prompted her visit to the ER. ER workup included CT of the right foot which reported fluid collection in 5th MTP joint compatible with abscess and adjacent cellulitis. She will be further admitted under hospitalist service for IV abx management with podiatry consultation. She denies any headache, chest pain, sob, abd pain,n/v, fever, or chills at this time. Ten point ROS is negative except as listed above Past Med Surg Social Fam HX - Past Medical History Medical history: diabetes Additional medical history: gastroporesis Psychiatric history: anxiety, depression - Past Surgical History Surgical History: hysterectomy, other Additional surgical history: j tube. pacemaker to stomach. eye surgeries - Social History Smoking Status: Never smoker Smokeless Tobacco Status: No Alcohol use: none Drug use: none - Family History Mother Hx Family Cardiac Disorders: Yes Hx Family Endocrine Disorder: Yes Internal Medicine - H&P: Meds Cholecalciferol (D-3) [Vitamin D] 5,000 unit PO DAILY 07/25/17 [History] Dexlansoprazole [Dexilant] 60 mg PO DAILY 07/25/17 [History] Gabapentin [Neurontin] 300 mg PO HS 07/25/17 [History] Insulin ASPART [NovoLOG] 70 unit SQ DAILY 07/25/17 [History] Levothyroxine Sodium [Levoxyl] 75 mcg PO DAILY 07/25/17 [History] Modafinil [Provigil] 200 mg PO BID 07/25/17 [History] Ondansetron ODT [Zofran ODT] 4 mg SL Q6HR PRN #10 tab.rapdis 10/03/17 [Rx] Guaifenesin/Dm/Pseudoephedrine [Capmist Dm Tablet] 1 each PO Q4HR PRN #10 tablet 09/10/18 [Rx] Ondansetron [Zofran ODT] 8 mg SL QID PRN #15 tab.rapdis 02/22/19 [Rx] Allergy/AdvReac Type Severity Reaction Status Date / Time azithromycin [From Zithromax] Allergy Rash Verified 12/20/18 14:37 metoclopramide [From Reglan] Allergy Rash Verified 12/20/18 14:37 prochlorperazine Allergy Rash Verified 12/20/18 14:37 [From Compazine] Sulfa (Sulfonamide Allergy Rash Verified 12/20/18 14:37 Antibiotics) All Systems PM: A 10-system review of systems was performed and is negative for pertinent findings except as documented above in the HPI. Review of systems: Ten point ROS is negative except as listed in the HPI - Constitutional Vitals: Temp Pulse Resp BP Pulse Ox 98.3 F 96 20 147/89 99 05/19/19 12:37 05/19/19 12:37 05/19/19 12:37 05/19/19 12:37 05/19/19 12:37 Exam: General: No acute distress, AAO x 3 HEENT: EOMI, PERRLA, NC/AT, no scleral icterus Respiratory: Clear to auscultate bilaterally, no wheezing, no rales Cardiovascular: Regular, Rate, Rhythm, No murmurs GI: Soft, Non tender, non distended, normal bowel sounds Ext: Right fifth toe erythema and swelling with purulent drainage, no toe nail present, palpable pulses bilaterally, no edema, no calf tenderness Neuro: AAO x 3, no focal deficits, CN II-XII grossly intact Rest of the clinical exam is noncontributory Internal Med - H&P Results - Labs CBC & Chem 7: 05/19/19 12:50 05/19/19 12:50 Labs: Short CBC 05/19/19 Range/Units 12:50 WBC 5.1 (4.3-11.1) K/mcL Hgb 11.1 L (11.5-15.4) g/dL Hct 33.7 L (35.3-44.9) % Plt Count 195 (140-400) K/mcL Neutrophils # 2.9 (1.6-8.9) K/mcL BMP 05/19/19 12:50 Sodium 136 Potassium 5.0 Chloride 106 Carbon Dioxide 25 BUN 18 Creatinine 1.06 Glucose 204 H Calcium 9.2 - Impressions ITS Impressions Foot CT 05/19/19 12:32 IMPRESSION: 1. Irregular fluid collection in the soft tissues plantar to the 5th MTP joint measuring approximately 14 x 7 x 10 mm compatible with an abscess and adjacent cellulitis. 2. No CT evidence of osteomyelitis or other acute osseous abnormality. D/ / Anthony Jalloh MD / Anthony Jalloh MD Interpreting Provider: Anthony Jalloh MD - Summary of Assessment and Plan Summary of Assessment and Plan: Ms. Baum is a 43 year old female with PMH of type I DM on insulin therapy, peripheral neuropathy, severe gastroparesis with s/p gastric pacemaker, hypothyroidism, narcolepsy, hypertension, anxiety who presents to the ER for evaluation of severe right foot pain. Assessment/Plan: 1. Infected foot ulcer/cellulitis/abscess of fifth toe on the right foot Failed outpatient abx therapy f/u wound and blood cultures continue IV vancomycin and zosyn podiatry evaluation has been requested pain control 2. Insulin dependent Diabetes mellitus type I will restart home dose of insulin after verification sliding scale insulin algorithm as needed monitor fingerstick and blood glucose Chronic Co-morbidities: HTN, Hypothyroidism, peripheral neuropathy, anxiety: will restart home medications after verification DVT ppx: Heparin SQ LOS > 2 midnights Care plan discussed with patient/family/consulting provider - Time Spent With Patient Total time spent is greater than 50% in coordination of care (as documented) at patient's floor/unit and/or counseling patient:
[2019-05-19] MEDS: 0.9 % Sodium Chloride 1,000 ML IVC SCH (17:01)
[2019-05-19] MEDS: Insulin LISPRO 300 UNITS/3 ML VIAL SQ SCH (17:04)
[2019-05-19] MEDS: *HR* Heparin 5,000 UNIT/ML VIAL SQ SCH (17:20)
[2019-05-19] MEDS ORDERED: Insulin LISPRO 300 UNITS/3 ML VIAL SQ SCH (21:00)
[2019-05-19] MEDS: Piperacillin/Tazobactam 3.375 GM in 0.9 % Sodium Chloride Mini Bag 100 ML IVPB SCH (23:12)
[2019-05-20 05:08] LABS: Basophils % 0.7 %; Eosinophils # 0.2 K/mcL (0.0-0.6); Eosinophils % 4.6 %; Hematocrit 33.1 % (35.3-44.9); Hemoglobin 10.7 g/dL (11.5-15.4); Immature Granulocytes % 0.2 % (0-4); Lymphocytes # 1.5 K/mcL (0.6-4.6); Lymphocytes % 34.3 %; Mean Corpuscular HGB Conc 32.3 g/dL (31.6-35.5); Mean Corpuscular Hemoglobin 29.9 pg (28.0-33.3); Mean Corpuscular Volume 92.5 fL (83.0-100.0); Mean Platelet Volume 10.8 fL (9.4-12.4); Monocytes # 0.4 K/mcL (0.0-1.3); Monocytes % 9.7 %; Neutrophils # 2.2 K/mcL (1.6-8.9); Platelet Count 174 K/mcL (140-400); Red Blood Count 3.58 M/mcL (3.82-4.97); Red Cell Distribution Width 12.9 % (11.5-14.5); Segmented Neutrophils % 50.5 %; White Blood Count 4.3 K/mcL (4.3-11.1)
[2019-05-20 05:28] LABS: BUN/Creatinine Ratio 13 (6-26); Blood Urea Nitrogen 15 mg/dL (6-20); Calcium 8.6 mg/dL (8.6-10.3); Carbon Dioxide 22 mEq/L (23-29); Chloride 106 mEq/L (98-107); Glucose 168 mg/dL (70-105); Osmolality,Calculated 287 (280-300); Phosphorous 3.5 mg/dL (2.7-4.5); Potassium 3.8 mEq/L (3.5-5.1); Sodium 136 mEq/L (136-145); eGFR For African Americans 60 (> 60); eGFR For Non-African Americans 49 (> 60)
[2019-05-20] MEDS: Piperacillin/Tazobactam 3.375 GM in 0.9 % Sodium Chloride Mini Bag 100 ML IVPB SCH ×3 (06:32→23:20)
[2019-05-20] MEDS: *HR* Heparin 5,000 UNIT/ML VIAL SQ SCH ×2 (06:32→17:15)
[2019-05-20] MEDS: Insulin LISPRO 300 UNITS/3 ML VIAL SQ SCH ×2 (09:24→12:00)
[2019-05-20 12:21] LABS: C-Reactive Protein < 5 mg/L (Less than 10)
[2019-05-20] MEDS ORDERED: Gabapentin 300 MG CAPSULE PO PRN (14:48)
--- NOTE | 2019-05-20 14:53 | Internal Med Progress Note ---
Hospitalist Progress Note - Encounter Date of Encounter: 05/20/19 Time of Encounter: 14:50 - Subjective Interval History: Patient seen and examined earlier today. Resting in bed, states pain better controlled. Foot inflammation and erythema significantly improved.No fever, or chills reported. Awaiting podiatry evaluation Ten point ROS is negative except as listed above No overnight events reported - Exam Vitals: Temp Pulse Resp BP Pulse Ox 98.2 F 99 15 122/76 100 05/20/19 14:37 05/20/19 14:37 05/20/19 14:37 05/20/19 14:37 05/20/19 14:37 Exam: General: No acute distress, AAO x 3 HEENT: EOMI, NC/AT, no scleral icterus Respiratory: Clear to auscultate bilaterally, no wheezing, no rales Cardiovascular: Regular, Rate, Rhythm, No murmurs GI: Soft, Non tender, non distended, normal bowel sounds Ext: Right fifth toe swelling noted, erythema improved, no drainage noted, no toe nail present, palpable pulses bilaterally, no edema, no calf tenderness Neuro: AAO x 3, no focal deficits Rest of the clinical exam is noncontributory - Summary of Assessment and Plan Summary of Assessment and Plan: Ms. Baum is a 43 year old female with PMH of type I DM on insulin therapy, peripheral neuropathy, severe gastroparesis with s/p gastric pacemaker, hypothyroidism, narcolepsy, hypertension, anxiety who presents to the ER for evaluation of severe right foot pain. Assessment/Plan: 1. Infected foot ulcer/cellulitis/abscess of fifth toe on the right foot Failed outpatient abx therapy f/u wound and blood cultures continue IV vancomycin and zosyn podiatry evaluation has been requested pain control 2. Insulin dependent Diabetes mellitus type I pt wishes to use her home insulin pump, will restart after pharmacist verifies monitor fingerstick and blood glucose Chronic Co-morbidities: HTN, Hypothyroidism, peripheral neuropathy, anxiety: restarted home medications DVT ppx: Heparin SQ Care plan discussed with patient/family/consulting provider/pharmacist/case management/child welfare social worker - Time Spent with Patient Total time spent is greater than 50% in coordination of care (as documented) at patient's floor/unit and/or counseling patient: Internal Medicine: Result - Labs CBC & Chem 7: 05/20/19 04:36 05/20/19 04:36 Labs: Short CBC 05/20/19 Range/Units 04:36 WBC 4.3 (4.3-11.1) K/mcL Hgb 10.7 L (11.5-15.4) g/dL Hct 33.1 L (35.3-44.9) % Plt Count 174 (140-400) K/mcL Neutrophils # 2.2 (1.6-8.9) K/mcL BMP 05/20/19 04:36 Sodium 136 Potassium 3.8 Chloride 106 Carbon Dioxide 22 L BUN 15 Creatinine 1.20 Glucose 168 H Calcium 8.6 - Impressions Impressions Foot CT 05/19/19 12:32 IMPRESSION: 1. Irregular fluid collection in the soft tissues plantar to the 5th MTP joint measuring approximately 14 x 7 x 10 mm compatible with an abscess and adjacent cellulitis. 2. No CT evidence of osteomyelitis or other acute osseous abnormality. D/ / Anthony Jalloh MD / Anthony Jalloh MD Interpreting Provider: Anthony Jalloh MD Consult Discharge Plan - Plan Referrals: Nikolas Crenshaw MD [Primary Care Provider] -
[2019-05-20] MEDS: 0.9 % Sodium Chloride 1,000 ML IVC SCH (15:18)
[2019-05-20] MEDS: [UNRECOGNIZED DRUG - OTHER] SQ SCH (17:32)
--- NOTE | 2019-05-20 19:29 | Podiatry Consult Note ---
Date of Encounter: 05/20/19 Time of Encounter: 14:13 Assessment and Plan (1) Abscess of right foot Current visit: Yes Status: Acute Assessment: Right 5th digit with eschar and erythema noted to DIPJ Edema noted to right great 5th digit WBC 4.3, ESR 13, CRP <5 3/4 DP/PT RLE Blood cultures pending No open ulceration noted, no fluctuance noted, no lymphangitis noted Plan: MR of right foot to evaluate abscess TCPO2, HGB A1C ordered After testing, will most likely need surgical intervention, will discuss with surgeon Impression: CT/CT foot RT w con IMPRESSION: 1. Irregular fluid collection in the soft tissues plantar to the 5th MTP joint measuring approximately 14 x 7 x 10 mm compatible with an abscess and adjacent cellulitis. 2. No CT evidence of osteomyelitis or other acute osseous abnormality. D/ / Anthony Jalloh MD / Anthony Jalloh MD History of Present Illness Chief complaint: right toe pain HPI: Ms. Baum is a 43 year old female who presented to the ER yesterday with complaints of right toe pain. Patient is known to the podiatry group and follows with Dr. Winkler. Patient has PMH of DM I with insulin pump, peripheral neuropathy, HTN, severe gastroparesis with s/p gastric pacemaker, hypothyroi dism, narcolepsy, and anxiety. Briefly, patient reports she has been following with Dr. Winkler regarding right 5th toe wound. States that she was seen in the urgent care in March for wound of foot and infection. States at that time she was given antibiotics. Reports following with Dr. Winkler in April. Records in [facility] report that patient had blister to right 5th toe that patient had been draining at home. At that time an xray was performed and she was given augmentin. Patient reports skin will repeatedly peel off and she has to remove the skin. States her 5th digit feels swollen like it is going to explode. Reports she has many autoimmune diseases and feels that this is due to an autoimmune disease, unrelated to diabetes. Again, Ms. Baum is a 43 year old female who is consulted to podiatry group for evaluation of right 5th toe wound. Upon admission to hospital CT was completed concerning for abscess of right 5th digit. ESR, 13, CRP <5, WBC 4.3. Blood cultures obtained and pending. Denies any fevers, chills, nausea, vomiting, or diarrhea. Denies any calf pain, chest pain, or shortness of breath. Reports blood glucose levels have been from 60s to 240s. Reports she has been controlled per insulin pump. No other questions or concerns at this time. Past Med Surg Social Fam HX - Past Medical History Medical history: diabetes, thyroid disease Additional medical history: Gastroparesis; narcolepsy; pituitary tumor Psychiatric history: anxiety, depression - Past Surgical History Surgical History: hysterectomy, other Additional surgical history: j tube. gastric pacemaker. eye surgeries - Social History Smoking Status: Former smoker Smokeless Tobacco Status: No Alcohol use: none Drug use: none - Family History Mother Age: 67 Living Status: Still Living Hx Family Cardiac Disorders: Yes Hx Family GI Disorders: Yes (Obesity) Hx Family Endocrine Disorder: Yes (Diabetes) Medications and Allergies Cholecalciferol (D-3) [Vitamin D] 5,000 unit PO DAILY 07/25/17 [History] Dexlansoprazole [Dexilant] 60 mg PO DAILY 07/25/17 [History] Gabapentin [Neurontin] 300 mg PO HS PRN 07/25/17 [History] Modafinil [Provigil] 200 mg PO BID 07/25/17 [History] Levothyroxine Sodium [Levoxyl] 50 mcg PO QAM 05/20/19 [History] Sodium Oxybate [Xyrem] 0 ml PO AD 05/20/19 [History] Subcutaneous Insulin Pump [T:Slim] 1 each MC AD 05/20/19 [History] Allergy/AdvReac Type Severity Reaction Status Date / Time azithromycin [From Zithromax] Allergy Rash Verified 12/20/18 14:37 metoclopramide [From Reglan] Allergy Rash Verified 12/20/18 14:37 prochlorperazine Allergy Rash Verified 12/20/18 14:37 [From Compazine] Sulfa (Sulfonamide Allergy Rash Verified 12/20/18 14:37 Antibiotics) All Systems Reviewed: The remainder of the systems were reviewed and are negative - Constitutional Constitutional: no fever(s) - Cardiovascular Cardiovascular: pedal edema, other (right 5th digit wound), no chest pain - Respiratory Respiratory: no cough, no dyspnea - Musculoskeletal Musculoskeletal: numbness, tingling Physical Exam - Constitutional Vitals: Temp Pulse Resp BP Pulse Ox 98.2 F 99 15 122/76 100 05/20/19 14:37 05/20/19 14:37 05/20/19 14:37 05/20/19 14:37 05/20/19 14:37 Exam: Constitiutional: Alert and oriented x 3. Well nourished. No acute distress noted Vascular: 3/4 DP/PT RLE, CFT <3 sec to all digits RLE, except right 5th digit, eschar noted to nail, warm to warm from tibia to toes RLE, no calf pain with squeeze RLE Neurologic: Diminished sensation to touch, normal plantar response Dermatologic: Skin w/d. Right 5th digit with erythema, edema, and eschar noted. No lymphangitis noted Musculoskeletal: 5/5 muscle strength and normal tone RLE Results - Labs Result Diagrams: 05/20/19 04:36 05/20/19 04:36 Labs: Abnormal lab results RBC 3.58 M/mcL (3.82-4.97) L 05/20/19 04:36 Hgb 10.7 g/dL (11.5-15.4) L 05/20/19 04:36 Hct 33.1 % (35.3-44.9) L 05/20/19 04:36 Carbon Dioxide 22 mEq/L (23-29) L 05/20/19 04:36 Est GFR (Non-Af Amer) 49 (> 60) L 05/20/19 04:36 Glucose 168 mg/dL (70-105) H 05/20/19 04:36 POC Glucose 241 mg/dL (70-99) H 05/20/19 16:12 Vancomycin Trough 16 mcg/mL (5-10) H 05/20/19 14:11 H & H 05/20/19 Range/Units 04:36 Hgb 10.7 L (11.5-15.4) g/dL Hct 33.1 L (35.3-44.9) % All other labs normal. - Diagnostic results Ankle/Foot CT: report reviewed Consult Discharge Plan - Plan Referrals: Nikolas Crenshaw MD [Primary Care Provider] -
[2019-05-20 19:43] LABS: Estimated Average Glucose 229 mg/dl
[2019-05-20] MEDS ORDERED: MODAFINIL 200 MG PO SCH (21:00)
[2019-05-21 05:58] LABS: Basophils % 0.4 %; Eosinophils # 0.2 K/mcL (0.0-0.6); Eosinophils % 3.8 %; Hematocrit 29.8 % (35.3-44.9); Immature Granulocytes % 0.2 % (0-4); Lymphocytes # 1.3 K/mcL (0.6-4.6); Lymphocytes % 29.3 %; Mean Corpuscular HGB Conc 33.6 g/dL (31.6-35.5); Mean Corpuscular Hemoglobin 30.6 pg (28.0-33.3); Mean Corpuscular Volume 91.1 fL (83.0-100.0); Mean Platelet Volume 10.4 fL (9.4-12.4); Monocytes # 0.4 K/mcL (0.0-1.3); Monocytes % 8.6 %; Neutrophils # 2.6 K/mcL (1.6-8.9); Platelet Count 169 K/mcL (140-400); Red Blood Count 3.27 M/mcL (3.82-4.97); Red Cell Distribution Width 12.6 % (11.5-14.5); Segmented Neutrophils % 57.7 %; White Blood Count 4.5 K/mcL (4.3-11.1)
[2019-05-21 06:18] LABS: BUN/Creatinine Ratio 21 (6-26); Blood Urea Nitrogen 22 mg/dL (6-20); Calcium 8.6 mg/dL (8.6-10.3); Carbon Dioxide 22 mEq/L (23-29); Chloride 108 mEq/L (98-107); Glucose 147 mg/dL (70-105); Osmolality,Calculated 290 (280-300); Phosphorous 3.9 mg/dL (2.7-4.5); Potassium 4.2 mEq/L (3.5-5.1); Sodium 137 mEq/L (136-145); eGFR For African Americans > 60 (> 60); eGFR For Non-African Americans 56 (> 60)
[2019-05-21] MEDS: Piperacillin/Tazobactam 3.375 GM in 0.9 % Sodium Chloride Mini Bag 100 ML IVPB SCH ×2 (06:25→14:41)
[2019-05-21] MEDS: *HR* Heparin 5,000 UNIT/ML VIAL SQ SCH ×2 (06:26→17:26)
[2019-05-21] MEDS ORDERED: Gadolinium Contrast Agent (WT Based) IV PRN (08:27)
--- NOTE | 2019-05-21 09:21 | Internal Med Progress Note ---
Hospitalist Progress Note - Encounter Date of Encounter: 05/21/19 Time of Encounter: 09:18 - Subjective Interval History: Patient seen and examined at bedside. Resting in bed and states pain is better controlled. Denies any fever or chills Podiatry recommended MRI of the right foot, pt unable to get MRI due to gastric pacemaker. Will follow up with podiatry in regards to further treatment plan. No overnight events reported Ten point ROS is negative except as listed above - Exam Vitals: Temp Pulse Resp BP Pulse Ox 98.5 F 79 15 110/68 98 05/21/19 06:40 05/21/19 06:40 05/21/19 06:40 05/21/19 06:40 05/21/19 06:40 Exam: General: No acute distress, AAO x 3 HEENT: EOMI, NC/AT, no scleral icterus Respiratory: Clear to auscultate bilaterally, no wheezing, no rales Cardiovascular: Regular, Rate, Rhythm, No murmurs GI: Soft, Non tender, non distended, normal bowel sounds Ext: Right fifth toe swelling noted, erythema improved, no drainage noted, no toe nail present, palpable pulses bilaterally, no edema, no calf tenderness Neuro: AAO x 3, no focal deficits Rest of the clinical exam is noncontributory - Summary of Assessment and Plan Summary of Assessment and Plan: Ms. Baum is a 43 year old female with PMH of type I DM on insulin therapy, peripheral neuropathy, severe gastroparesis with s/p gastric pacemaker, hypothyroidism, narcolepsy, hypertension, anxiety who presents to the ER for evaluation of severe right foot pain. Assessment/Plan: 1. Infected foot ulcer/cellulitis/abscess of fifth toe on the right foot Failed outpatient abx therapy f/u wound and blood cultures (no growth reported on blood cultures thus far). Wound cultures have been ordered continue IV vancomycin and zosyn podiatry follow up requested in regards to treatment plan as patient is not able to get MRI due to gastric pacemaker pain control 2. Insulin dependent Diabetes mellitus type I continue patient's home insulin pump monitor fingerstick and blood glucose Chronic Co-morbidities: HTN, Hypothyroidism, peripheral neuropathy, anxiety: restarted home medications DVT ppx: Heparin SQ Care plan discussed with patient/consulting provider/pharmacist/case manage ment/social organization professor - Time Spent with Patient Total time spent is greater than 50% in coordination of care (as documented) at patient's floor/unit and/or counseling patient: Internal Medicine: Result - Labs CBC & Chem 7: 05/21/19 05:38 05/21/19 05:38 Labs: Short CBC 05/21/19 Range/Units 05:38 WBC 4.5 (4.3-11.1) K/mcL Hgb 10.0 L (11.5-15.4) g/dL Hct 29.8 L (35.3-44.9) % Plt Count 169 (140-400) K/mcL Neutrophils # 2.6 (1.6-8.9) K/mcL BMP 05/21/19 05:38 Sodium 137 Potassium 4.2 Chloride 108 H Carbon Dioxide 22 L BUN 22 H Creatinine 1.07 Glucose 147 H Calcium 8.6 Consult Discharge Plan - Plan Referrals: Nikolas Crenshaw MD [Primary Care Provider] -
[2019-05-21] MEDS: Cholecalciferol (D-3) 1,000 UNIT (25MCG) TABLET PO SCH (09:22)
[2019-05-21] MEDS: [UNRECOGNIZED DRUG - OTHER] SQ SCH (10:50)
--- NOTE | 2019-05-21 15:30 | Podiatry Progress Note ---
Date of Encounter: 05/21/19 Time of Encounter: 14:03 - Assessment and Plan (1) Abscess of right foot Current Visit: Yes Status: Acute Assessment: Right 5th digit with eschar and erythema noted to DIPJ Edema noted to right great 5th digit WBC 4.5, ESR 13, CRP <5 3/4 DP/PT RLE Blood cultures pending No open ulceration noted, no fluctuance noted, no lymphangitis noted Unable to complete MR d/t gastric PM TCPO2 consistent with healing HGB A1C 9.6 Plan: Will plan for OR tomorrow, will be an add on case NPO after breakfast Impression: CT/CT foot RT w con IMPRESSION: 1. Irregular fluid collection in the soft tissues plantar to the 5th MTP joint measuring approximately 14 x 7 x 10 mm compatible with an abscess and adjacent cellulitis. 2. No CT evidence of osteomyelitis or other acute osseous abnormality. D/ / Anthony Jalloh MD / Anthony Jalloh MD Objective - Vital Signs Vital Signs: Vital Signs Temp Pulse Resp BP Pulse Ox 05/21/19 14:39 98.1 F 94 15 115/70 98 05/21/19 12:25 98.1 F 86 14 109/70 98 05/21/19 06:40 98.5 F 79 15 110/68 98 05/21/19 04:04 98.3 F 92 17 123/77 97 05/20/19 19:53 98.5 F 99 14 109/68 99 Intake and Output 05/20/19 05/21/19 05/21/19 23:59 07:59 15:59 Intake Total 460 / 2150 350 / 450 100 / 450 Output Total 750 / 1650 1500 / 1500 Balance -290 / 500 -1150 / -1050 100 / -1050 Intake: IV Fluids 100 / 1550 350 / 450 100 / 450 Zosyn 3.375 GM In 0.9 % Sodium 100 / 300 100 / 200 100 / 200 Chloride (Mini-Bag +) 100 ML @ 25 mls/hr IVPB Q8H [facility] Rx#: [id number] Vancocin 1,250 MG In 0.9 % 250 / 250 Sodium Chloride 250 ML @ 166.67 mls/hr IVPB Q24H [facility] Rx#: [id number] Oral 360 / 600 Output: Urine 750 / 1650 1500 / 1500 Other: Meal Dinner Percent of Meal Consumed 100% # Voids 0 2 Weight 79.6 kg Blood Glucose* 241 156 Patient Weight 05/21/19 23:59 Weight 79.6 kg - Exam Exam: Constitiutional: Alert and oriented x 3. Well nourished. No acute distress noted Vascular: 3/4 DP/PT RLE, CFT <3 sec to all digits RLE, except right 5th digit, eschar noted to nail, warm to warm from tibia to toes RLE, no calf pain with squeeze RLE Neurologic: Diminished sensation to touch, normal plantar response Dermatologic: Skin w/d. Right 5th digit with erythema, edema, and eschar noted. No lymphangitis noted Musculoskeletal: 5/5 muscle strength and normal tone RLE - Lab Result Diagrams: 05/21/19 05:38 05/21/19 05:38 Labs: Abnormal lab results RBC 3.27 M/mcL (3.82-4.97) L 05/21/19 05:38 Hgb 10.0 g/dL (11.5-15.4) L 05/21/19 05:38 Hct 29.8 % (35.3-44.9) L 05/21/19 05:38 Chloride 108 mEq/L (98-107) H 05/21/19 05:38 Carbon Dioxide 22 mEq/L (23-29) L 05/21/19 05:38 BUN 22 mg/dL (6-20) H 05/21/19 05:38 Est GFR (Non-Af Amer) 56 (> 60) L 05/21/19 05:38 Glucose 147 mg/dL (70-105) H 05/21/19 05:38 POC Glucose 129 mg/dL (70-99) H 05/20/19 19:48 Hemoglobin A1c 9.6 % (-5.6) H 05/20/19 04:36 Vancomycin Trough 16 mcg/mL (5-10) H 05/20/19 14:11 Microbiology, Last 48 Hours 05/19/19 12:50 Blood Culture - Preliminary Peripheral Venipuncture Culture is incubating and being continuously monitored for growth. Final report to follow. 05/19/19 12:47 Blood Culture - Preliminary Peripheral Venipuncture Culture is incubating and being continuously monitored for growth. Final report to follow. Consult Discharge Plan - Plan Referrals: Nikolas Crenshaw MD [Primary Care Provider] -
[2019-05-22] MEDS: Piperacillin/Tazobactam 3.375 GM in 0.9 % Sodium Chloride Mini Bag 100 ML IVPB SCH ×4 (03:16→23:42)
[2019-05-22] MEDS: *HR* Heparin 5,000 UNIT/ML VIAL SQ SCH ×2 (04:52→18:34)
[2019-05-22 07:47] LABS: Basophils % 0.6 %; Eosinophils # 0.2 K/mcL (0.0-0.6); Hematocrit 33.3 % (35.3-44.9); Hemoglobin 10.9 g/dL (11.5-15.4); Lymphocytes # 1.4 K/mcL (0.6-4.6); Lymphocytes % 28.4 %; Mean Corpuscular HGB Conc 32.7 g/dL (31.6-35.5); Mean Corpuscular Hemoglobin 30.3 pg (28.0-33.3); Mean Corpuscular Volume 92.5 fL (83.0-100.0); Mean Platelet Volume 10.4 fL (9.4-12.4); Monocytes # 0.4 K/mcL (0.0-1.3); Monocytes % 8.3 %; Platelet Count 167 K/mcL (140-400); Red Cell Distribution Width 12.5 % (11.5-14.5); Segmented Neutrophils % 58.7 %
[2019-05-22 08:10] LABS: BUN/Creatinine Ratio 26 (6-26); Blood Urea Nitrogen 25 mg/dL (6-20); Calcium 9.1 mg/dL (8.6-10.3); Carbon Dioxide 22 mEq/L (23-29); Chloride 105 mEq/L (98-107); Glucose 138 mg/dL (70-105); Magnesium 1.9 mg/dL (1.6-2.6); Osmolality,Calculated 293 (280-300); Phosphorous 3.7 mg/dL (2.7-4.5); Potassium 4.2 mEq/L (3.5-5.1); Sodium 138 mEq/L (136-145); eGFR For African Americans > 60 (> 60); eGFR For Non-African Americans > 60 (> 60)
[2019-05-22] MEDS: Cholecalciferol (D-3) 1,000 UNIT (25MCG) TABLET PO SCH (09:26)
[2019-05-22] MEDS: [UNRECOGNIZED DRUG - OTHER] SQ SCH (09:55)
--- NOTE | 2019-05-22 13:42 | Internal Med Progress Note ---
Hospitalist Progress Note - Encounter Date of Encounter: 05/22/19 Time of Encounter: 13:40 - Subjective Interval History: Patient particular about taking home medications other than hospital substitutes for her PPI and ADHD medication - Exam Vitals: Temp Pulse Resp BP Pulse Ox 98.3 F 82 16 99/60 99 05/22/19 11:11 05/22/19 11:11 05/22/19 11:11 05/22/19 11:11 05/22/19 11:11 Exam: General: No acute distress, AAO x 3 HEENT: EOMI, NC/AT, no scleral icterus Respiratory: Clear to auscultate bilaterally, no wheezing, no rales Cardiovascular: Regular, Rate, Rhythm, No murmurs GI: Soft, Non tender, non distended, normal bowel sounds Ext: Right fifth toe swelling noted, erythema improved, no drainage noted, no toe nail present, palpable pulses bilaterally, no edema, no calf tenderness Neuro: AAO x 3, no focal deficits Rest of the clinical exam is noncontributory - Assessment and Plan (1) Diabetic infection of right foot Current Visit: Yes Status: Acute Assessment and Plan: Patient with history of insulin-dependent type 1 diabetes presents for surgical management of known diabetic foot infection of right foot fifth digit. -Failed multiple courses of outpatient antibiotic therapy -Wound and cultures no growth to date so on broad-spectrum antibiotics currently PLAN: - Going to surgery today with podiatry - Continue vancomycin and Zosyn - will consult ID tomorrow regarding narrowing antibiotics - Follow up cultures (2) Diabetes mellitus Current Visit: No Status: Chronic Assessment and Plan: Blood sugar is currently well controlled with insulin pump. Not ideal to go to surgery with, however, had significant problems with stopping pump during previous hospitalizations so would like to continue this during surgery. - Insulin pump during surgery with D5 IVF (3) Gastroparesis due to DM Current Visit: No Status: Chronic Assessment and Plan: Continue home medications - Time Spent with Patient Total time spent is greater than 50% in coordination of care (as documented) at patient's floor/unit and/or counseling patient: Internal Medicine: Result - Labs CBC & Chem 7: 05/22/19 07:08 05/22/19 07:08 Labs: Short CBC 05/22/19 Range/Units 07:08 WBC 5.0 (4.3-11.1) K/mcL Hgb 10.9 L (11.5-15.4) g/dL Hct 33.3 L (35.3-44.9) % Plt Count 167 (140-400) K/mcL Neutrophils # 3.0 (1.6-8.9) K/mcL [facility] 05/22/19 07:08 Sodium 138 Potassium 4.2 Chloride 105 Carbon Dioxide 22 L BUN 25 H Creatinine 0.98 Glucose 138 H Calcium 9.1 Consult Discharge Plan - Plan Referrals: Nikolas Crenshaw MD [Primary Care Provider] - (2) Diabetes mellitus Qualifiers: Diabetes mellitus type: type 1 Diabetes mellitus complication status: with skin complications Diabetes mellitus complication detail: with foot ulcer Qualified Code(s): E10.621 - Type 1 diabetes mellitus with foot ulcer; L97.509 - Non-pressure chronic ulcer of other part of unspecified foot with unspecified severity
[2019-05-22] MEDS ORDERED: Ropivacaine/PF 0.5% 30 ML VIAL ONE (16:15)
[2019-05-22] MEDS ORDERED: ROPIVACAINE/PF/NS 0.25% 1 EACH SYRINGE INTRAART ONE (16:17)
--- NOTE | 2019-05-22 16:44 | Anesthesia Evaluation PreOp ---
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 HX Other Medical History: Diabetes Type I, Thyroid (Hypo), GERD (Gastroporesis) Anesthesia History: No Prior Anesthetic Complications, Past Anesthesia (VEGA, Gastric Pacemaker) : No (VEGA) Alcohol Use: none Drug use: none Medications and Allergies Cholecalciferol (D-3) [Vitamin D] 5,000 unit PO DAILY 07/25/17 [History] Dexlansoprazole [Dexilant] 60 mg PO DAILY 07/25/17 [History] Gabapentin [Neurontin] 300 mg PO HS PRN 07/25/17 [History] Modafinil [Provigil] 200 mg PO BID 07/25/17 [History] Levothyroxine Sodium [Levoxyl] 50 mcg PO QAM 05/20/19 [History] Sodium Oxybate [Xyrem] 0 ml PO AD 05/20/19 [History] Subcutaneous Insulin Pump [T:Slim] 1 each MC AD 05/20/19 [History] Allergy/AdvReac Type Severity Reaction Status Date / Time azithromycin [From Zithromax] Allergy Rash Verified 12/20/18 14:37 metoclopramide [From Reglan] Allergy Rash Verified 12/20/18 14:37 prochlorperazine Allergy Rash Verified 12/20/18 14:37 [From Compazine] Sulfa (Sulfonamide Allergy Rash Verified 12/20/18 14:37 Antibiotics) - Meds/Allergy Pre-op Review Medications Reviewed: Yes Allergies Reviewed: Yes Beta Blockers on Current Med List: No Anesthesia Results - Labs 05/22/19 07:08 05/22/19 07:08 - Imaging EKG: report reviewed (Sinus tachycardia Low voltage, precordial leads Electron ically Signed On 02-26-2019 9:27:24 EDT by Naeem Martinez) Anesthesia Exam Vital Signs/O2 Sat, Most Current Temp Pulse Resp BP Pulse Ox 98.4 F 89 16 100/60 98 05/22/19 14:26 05/22/19 14:26 05/22/19 14:26 05/22/19 14:26 05/22/19 14:26 Blood glucose: 166 NPO (# of Hours): > 8 hrs Pain Scale: 0 Pain Scale Used: Numeric (1 - 10) - HEENT Pupil (Motor): Pupils equal, EOMI Mallampati: I Teeth: Normal Oral Opening: Greater than 3 - [employer] SAL[employer]ERSON LOC: Oriented [employer] SALESPERSON Motor: Normal RUE, Normal LUE, Normal RLE, Normal LLE, Normal Face [employer]ERSON Sensory: Normal: RUE, LUE, RLE, LLE, Face - Cardiac Rhythm: Regular Murmur: None JVD: No Carotid Bruit: No - Pulmonary Breath Sounds: bilateral Clear Respiratory Effort: Symmetrical Anesthesia Assess/Plan ASA Score: 3 Level of consciousness: Cooperative Anesthetic Plan: MAC Autologous Blood: Yes Monitoring Plan: Standard Monitors Recovery Plan: Other
[2019-05-22] MEDS ORDERED: Calcium Gluconate 1,000 MG/10 ML VIAL ONE (17:16)
[2019-05-22] MEDS ORDERED: Propofol 500 MG/50 ML INFUS..BTL ONE (17:59)
[2019-05-22] MEDS ORDERED: *HR* Propofol 200 MG/20 ML VIAL IVP ONE (17:59)
[2019-05-22] MEDS ORDERED: *HR* FentaNYL (PF) 100 MCG/2 ML VIAL ONE (17:59)
[2019-05-22] MEDS ORDERED: Lidocaine -MPF 2% 2 ML VIAL ONE (17:59)
[2019-05-22] MEDS ORDERED: *HR* Midazolam HCl 2 MG/2 ML VIAL ONE (17:59)
--- NOTE | 2019-05-22 18:23 | Orthopedic Operative Note ---
Date of procedure: 05/22/19 Pre-op diagnosis: #1: Osteomyelitis necrosis toe #5 distal aspect, right foot Post-op diagnosis: same Procedure: 05/22/19 18:17 #1: Partial amputation digit #5 right foot Implants: None Complications: None Anesthesia: MAC, local (Ropivacaine plain) Local Anesthetics: Other (Ropivacaine plain) Surgeon: Remberto Winkler Was there an assistant professor of english present: No Estimated blood loss (cc): 5 Tourniquet Time (Minutes): 0 Specimen: Partial toe #5 right foot Condition: stable Disposition: floor Procedure in Detail: 05/22/19 18:19 Details summary of procedure: Patient brought to surgical suite. Sign in procedure performed. Patient transferred surgical table and positioned properly safely securely. Right foot elevated on foam block. No tourniquet used. Anesthetic timeout taken. Right foot prepped with alcohol 3 times. Modified nail block carried out at the midshaft of the fifth metatarsal as well as a targeted sural nerve block and superficial peroneal nerve block. No complications encountered. Right foot prepped and draped usual sterile manner. Surgical timeout taken. . We observe necrosis the distal aspect toe #5 right foot. No other fluctuance or evidence of occult abscess proximally. A standard lateral incision was begun the junction lateral plantar skin of the fifth toe level proximal phalangeal joint and brought distally and then circumferentially about the distal aspect of the toe meeting the junction of the medial plantar skin at the level of the middle phalanx. Incisions were deepened directly down the bone. Transverse incision was begun just distal to the proximal interphalangeal joint. At that point, double-action bone forceps was used to divide the bone lateral to medial. Specimen was sent for age PT. Identification of the proximal phalangeal joint which was then divided cleanly by performing a capsulotomy 15 scalpel blade. The phalanx was then excised. Inspection of the wound found to be without ev idence of nonviable tissue. Wound was clean without clinical evidence of infection or loculated abscess or further necrosis. Unfortunately the prominence of the head of the proximal phalanx does not allow closure without tension. Therefore that was excised as well. The head of proximal phalanx was divided lateral to medial the bone forceps remainder osseous surfaces were rasped smooth using a Tu nasal rasp. Again the wound was without any evidence of necrosis or infection. The wound was noted to bleed freely without necessitating use of ligature. Judicious use of Bovie was employed. The wound was thoroughly irrigated finding no bone chips or debris closure was uneventful using 4-0 Prolene. Excellent apposition of the dorsal and plantar flaps was achieved without overlap or redundancy. Capillary rebound time is less than 3 seconds to each skin edge. Complication scattered on a blood loss less than 5 mL patient sent to holding room in good condition with vital signs stable. Dry sterile dressing was applied consisting of Adaptic 4 x 4's and Kerlix without significant compression. Hemostasis was achieved prior to closure. Wound was sprayed with PRP prior to closure. ,
[2019-05-22] MEDS ORDERED: *HR* Dextrose 50 % in Water (Syg) 50 ML SYRINGE IVP PRN (19:00)
[2019-05-22] MEDS ORDERED: D5% in Water 1,000 ML IVC PRN (19:00)
[2019-05-22] MEDS ORDERED: Dextrose Gel 15 GM/37.5 ML TUBE PO PRN ×2 (19:00)
[2019-05-22] MEDS ORDERED: Gabapentin 300 MG CAPSULE PO PRN (19:00)
[2019-05-22] MEDS ORDERED: Gadolinium Contrast Agent (WT Based) IV PRN (19:00)
[2019-05-22] MEDS ORDERED: Ondansetron 4 MG/2 ML VIAL IVP PRN (19:00)
[2019-05-22] MEDS ORDERED: Naloxone 0.4 MG/ML INJ IVP PRN (19:00)
[2019-05-22] MEDS ORDERED: Acetaminophen 325 MG TABLET PO PRN (19:00)
[2019-05-22] MEDS: Ketorolac 30 MG/ML VIAL IVP PRN (23:44)
[2019-05-23] MEDS ORDERED: *HR* Heparin 5,000 UNIT/ML VIAL SQ SCH (06:00)
[2019-05-23] MEDS: Ketorolac 30 MG/ML VIAL IVP PRN (06:19)
[2019-05-23] MEDS: Piperacillin/Tazobactam 3.375 GM in 0.9 % Sodium Chloride Mini Bag 100 ML IVPB SCH (06:19)
[2019-05-23] MEDS ORDERED: DEXILANT 60 MG PO SCH ×2 (06:30)
[2019-05-23] MEDS ORDERED: [UNRECOGNIZED DRUG - OTHER] SQ SCH (09:00)
[2019-05-23] MEDS ORDERED: Cholecalciferol (D-3) 1,000 UNIT (25MCG) TABLET PO SCH (09:00)
[2019-05-23 10:24] VITALS: BP 114/71
--- NOTE | 2019-05-23 11:05 | Internal Med Progress Note ---
Hospitalist Progress Note - Encounter Date of Encounter: 05/23/19 Time of Encounter: 11:00 - Subjective Interval History: Patient went to surgery yesterday for partial amputation of fifth digit. Has minimal pain currently. Very anxious to get out of the hospital. - Exam Vitals: Temp Pulse Resp BP Pulse Ox 98.0 F 89 17 114/71 98 05/23/19 10:21 05/23/19 10:21 05/23/19 10:21 05/23/19 10:21 05/23/19 10:21 Exam: General: No acute distress, AAO x 3 HEENT: EOMI, NC/AT, no scleral icterus Respiratory: Clear to auscultate bilaterally, no wheezing, no rales Cardiovascular: Regular, Rate, Rhythm, No murmurs GI: Soft, Non tender, non distended, normal bowel sounds Ext: Right fifth toe status post partial amputation Neuro: AAO x 3, no focal deficits Rest of the clinical exam is noncontributory - Assessment and Plan (1) Diabetic infection of right foot Current Visit: Yes Status: Acute Assessment and Plan: Patient with history of insulin-dependent type 1 diabetes presents for surgical management of known diabetic foot infection of right foot fifth digit. -Failed multiple courses of outpatient antibiotic therapy -Wound and cultures no growth to date so on broad-spectrum antibiotics currently -Status post partial amputation yesterday by podiatry. Will consult infectious disease for narrowing of antibiotics PLAN: - Going to surgery today with podiatry - Continue vancomycin and Zosyn - consult ID for help with narrowing - Follow up cultures (2) Diabetes mellitus Current Visit: No Status: Chronic Assessment and Plan: Blood sugar is currently well controlled with insulin pump. (3) Gastroparesis due to DM Current Visit: No Status: Chronic Assessment and Plan: Continue home medications DVT Prophylaxis: Ambulatory patient. SCDs - Time Spent with Patient Total time spent is greater than 50% in coordination of care (as documented) at patient's floor/unit and/or counseling patient: Greater than 35 minutes Plan of Care Discussed with: patient Internal Medicine: Result - Labs CBC & Chem 7: 05/22/19 07:08 05/22/19 07:08 Consult Discharge Plan - Plan Referrals: Nikolas Crenshaw MD [Primary Care Provider] - (2) Diabetes mellitus Qualifiers: Diabetes mellitus type: type 1 Diabetes mellitus complication status: with skin complications Diabetes mellitus complication detail: with foot ulcer Qualified Code(s): E10.621 - Type 1 diabetes mellitus with foot ulcer; L97.509 - Non-pressure chronic ulcer of other part of unspecified foot with unspecified severity
--- NOTE | 2019-05-23 12:39 | Podiatry Progress Note ---
Date of Encounter: 05/23/19 Time of Encounter: 11:10 - Assessment and Plan (1) Abscess of right foot Current Visit: Yes Status: Acute Assessment: S/P Partial amputation digit #[address] Winkler on 05/22/19 WBC 5.0, ESR 13, CRP <5 3/4 DP/PT RLE Blood cultures pending Pathology pending TCPO2 consistent with healing HGB A1C 9.6 Plan: Awaiting intra-op cultures, wound margins clear, tissue does not appear infected, recommend PO ATB ID consulted- appreciate input Surgical shoe ordered, limited weight bearing, heel only Follow up in office next week. Please make appointment prior to d/c Cleansed incision with 0.9 NS, covered with adaptic, 4x4 dry gauze, and kerlix. Secured with medipore tape. Impression: CT/CT foot RT w con IMPRESSION: 1. Irregular fluid collection in the soft tissues plantar to the 5th MTP joint measuring approximately 14 x 7 x 10 mm compatible with an abscess and adjacent cellulitis. 2. No CT evidence of osteomyelitis or other acute osseous abnormality. D/ / Anthony Jalloh MD / Anthony Jalloh MD Subjective Interval history: Patient awake in bed. Daughter at bedside. Denies any fevers, chills, nausea, vomiting, or diarrhea. Denies any calf pain, chest pain, or shortness of breath. Reports she would like to go home today. No other questions or concerns at this time. When documenting nurse called and stated patient is leaving AMA. Objective - Vital Signs Vital Signs: Vital Signs Temp Pulse Resp BP Pulse Ox 05/23/19 10:21 98.0 F 89 17 114/71 98 05/23/19 06:57 98.1 F 82 17 102/64 96 05/23/19 02:41 98.3 F 80 15 101/60 97 05/22/19 23:48 97.9 F 91 16 137/79 98 05/22/19 22:01 98.3 F 86 18 96/63 97 05/22/19 21:00 98 F 88 18 108/70 98 05/22/19 20:00 98.0 F 92 18 117/72 99 05/22/19 19:30 98.0 F 87 16 114/78 98 05/22/19 18:59 97.6 F 78 14 119/76 98 05/22/19 14:26 98.4 F 89 16 100/60 98 Intake and Output 05/22/19 05/23/19 05/23/19 23:59 07:59 15:59 Intake Total 0 / 340 100 / 460 360 / 460 Output Total 5 / 905 0 / 0 Balance -5 / -565 100 / 460 360 / 460 Intake: IV Fluids 100 / 100 Zosyn 3.375 GM In 0.9 % Sodium 100 / 100 Chloride (Mini-Bag +) 100 ML @ 25 mls/hr IVPB Q8H NELLY Rx#: [id number] Oral 0 / 240 0 / 360 360 / 360 Output: Urine 0 / 900 0 / 0 Estimated Blood Loss Other: Meal Breakfast Percent of Meal Consumed 100% # Voids 1 Blood Glucose* 257 122 136 - Exam Exam: Constitiutional: Alert and oriented x 3. Well nourished. No acute distress noted Vascular: 3/4 DP/PT RLE, CFT <3 sec to all digits RLE, partial toe amp right phalanx #5, warm to warm from tibia to toes RLE, no calf pain with squeeze RLE Neurologic: Diminished sensation to touch, normal plantar response Dermatologic: Skin w/d. Incision noted to right distal phalanx #5, well approximated, no signs of active drainage noted, no erythema, no edema noted, no lymphangitis, no cellulitis noted Musculoskeletal: 03/10 muscle strength and normal tone RLE - Lab Result Diagrams: 05/22/19 07:08 05/22/19 07:08 Labs: Abnormal lab results RBC 3.60 M/mcL (3.82-4.97) L 05/22/19 07:08 Hgb 10.9 g/dL (11.5-15.4) L 05/22/19 07:08 Hct 33.3 % (35.3-44.9) L 05/22/19 07:08 Chloride 108 mEq/L (98-107) H 05/21/19 05:38 Carbon Dioxide 22 mEq/L (23-29) L 05/22/19 07:08 BUN 25 mg/dL (6-20) H 05/22/19 07:08 Est GFR (Non-Af Amer) 56 (> 60) L 05/21/19 05:38 Glucose 138 mg/dL (70-105) H 05/22/19 07:08 POC Glucose 166 mg/dL (70-99) H 05/22/19 11:15 Hemoglobin A1c 9.6 % (-5.6) H 05/20/19 04:36 Vancomycin Trough 16 mcg/mL (5-10) H 05/20/19 14:11 Consult Discharge Plan - Plan Additional Instructions: Limited ambulation, heel weight bearing only, elevate extremity when non ambulatory, wear surgical shoe when ambulating Do not get foot wet. Keep dressing clean dry and intact until next appointment. Call office if signs of an infection, pain worsening without relief by pain medication, and questions/concerns. If calf pain, shortness of breath, or chest pain go to nearest ER immediately Referrals: Nikolas Crenshaw MD [Primary Care Provider] -
--- NOTE | 2019-05-23 13:12 | Discharge Summary ---
Orders not resulted at time of discharge: Pending orders 05/19/19 12:50 Culture,Blood [BC] Stat 05/19/19 15:52 Culture,Wound [RM] Stat 05/22/19 18:42 Surgical Pathology [PTH] Routine 05/24/19 16:00 Vancomycin,Trough Timed Date of Encounter: 05/23/19 Time of Encounter: 13:06 - Discharge Diagnosis (1) Diabetic infection of right foot Priority: Primary Status: Acute (2) Diabetes mellitus Priority: Secondary Status: Chronic Qualifiers: Diabetes mellitus type: type 1 Diabetes mellitus complication status: with skin complications Diabetes mellitus complication detail: with foot ulcer Qualified Code(s): E10.621 - Type 1 diabetes mellitus with foot ulcer; L97.509 - Non-pressure chronic ulcer of other part of unspecified foot with unspecified severity (3) Gastroparesis due to DM Priority: Secondary Status: Chronic Hospital course: Ms. Baum is a 43 year old female with history of insulin-dependent diabetes type 1 on insulin pump presented for surgical management of known diabetic foot infection of right foot fifth digit status post partial amputation of this digit. Cultures were no growth to date during admission. Referred patient stayed another 24 hours to ensure wound stability, however, patient demanded she leave today so discharge was set up. This was a nonideal discharge putting patient at risk for further morbidity. She was discharged on doxycycline and levofloxacin to complete a ten-day course no follow-up closely with podiatry. - Time Spent with Patient Total time spent providing and/or coordinating discharge services: - Discharge Medications Prescriptions: New Doxycycline 100 mg PO BID #20 capsule levoFLOXacin [Levaquin] 750 mg PO DAILY #10 tablet Continued Gabapentin [Neurontin] 300 mg PO HS PRN PRN Reason: NeuroPATHY Cholecalciferol (D-3) [Vitamin D] 5,000 unit PO DAILY Modafinil [Provigil] 200 mg PO BID Dexlansoprazole [Dexilant] 60 mg PO DAILY Subcutaneous Insulin Pump [T:Slim] 1 each MC AD Levothyroxine Sodium [Levoxyl] 50 mcg PO QAM Sodium Oxybate [Xyrem] 0 ml PO AD Home Medications: Cholecalciferol (D-3) [Vitamin D] 5,000 unit PO DAILY 07/25/17 [History] Dexlansoprazole [Dexilant] 60 mg PO DAILY 07/25/17 [History] Gabapentin [Neurontin] 300 mg PO HS PRN 07/25/17 [History] Modafinil [Provigil] 200 mg PO BID 07/25/17 [History] Levothyroxine Sodium [Levoxyl] 50 mcg PO QAM 05/20/19 [History] Sodium Oxybate [Xyrem] 0 ml PO AD 05/20/19 [History] Subcutaneous Insulin Pump [T:Slim] 1 each MC AD 05/20/19 [History] Doxycycline 100 mg PO BID #20 capsule 05/23/19 [Rx] levoFLOXacin [Levaquin] 750 mg PO DAILY #10 tablet 05/23/19 [Rx] Allergies/Adverse Reactions: Allergy/AdvReac Type Severity Reaction Status Date / Time azithromycin [From Zithromax] Allergy Rash Verified 12/20/18 14:37 metoclopramide [From Reglan] Allergy Rash Verified 12/20/18 14:37 prochlorperazine Allergy Rash Verified 12/20/18 14:37 [From Compazine] Sulfa (Sulfonamide Allergy Rash Verified 12/20/18 14:37 Antibiotics) Date of admission: 05/19/19 15:50 Primary care physician: Nikolas Crenshaw MD Consults: 05/19/19 15:10 Consult to Podiatry [CONS] Stat Consulting Provider: Podiatry [facility] Reason for Consult: right fifth toe abscess and cellulitis Call Completed: Yes 05/23/19 11:03 Consult to Infectious Diseases [CONS] Routine Consulting Provider: Infectious [facility] Reason for Consult: narrowing antibiotics for diabetic foot infection Call Completed: Yes - Constitutional Vitals: Temp Pulse Resp BP Pulse Ox 98.0 F 89 17 114/71 98 05/23/19 10:21 05/23/19 10:21 05/23/19 10:21 05/23/19 10:21 05/23/19 10:21 Exam: General: No acute distress, AAO x 3 HEENT: EOMI, NC/AT, no scleral icterus Respiratory: Clear to auscultate bilaterally, no wheezing, no rales Cardiovascular: Regular, Rate, Rhythm, No murmurs GI: Soft, Non tender, non distended, normal bowel sounds Ext: Right fifth toe status post partial amputation Neuro: AAO x 3, no focal deficits Rest of the clinical exam is noncontributory - Patient Status Disposition: Home, Self-Care Condition: Good Functional capacity at discharge: independent ambulation Overall status at discharge: patient is progressing back to baseline - Discharge Instructions Follow Up With: Nikolas Crenshaw MD [Primary Care Provider] - Additional Instructions: Limited ambulation, heel weight bearing only, elevate extremity when non ambulatory, wear surgical shoe when ambulating Do not get foot wet. Keep dressing clean dry and intact until next appointment. Call office if signs of an infection, pain worsening without relief by pain medication, and questions/concerns. If calf pain, shortness of breath, or chest pain go to nearest ER immediately - Diet and Activity Activity: increase activity as tolerated Diet: diabetic diet
[2019-05-23] MEDS ORDERED: levoFLOXacin 750 MG TABLET PO SCH (13:15)
[2019-05-23] MEDS ORDERED: Aminoglycoside Consult 1 EACH MC ONE (14:28)
[2019-05-23] MEDS ORDERED: Doxycycline 100 MG CAPSULE PO SCH (21:00)
== END 2019-05-23 14:29 | disposition home or self-care (01) | DRG 617 ==
LOC: EMEROOARM 12:07 → SUATTDRO 15:50 → 3ANU 15:50
PROVIDERS: ADMIT Internal Medicine; ATTEND Internal Medicine

== ENCOUNTER 2019-05-27 21:36 | Observation (INO) ==
[2019-05-27] MEDS ORDERED: Ondansetron 4 MG/2 ML VIAL IVP ONE (22:00)
[2019-05-27] MEDS ORDERED: Morphine Sulfate 2 MG/ML SYRINGE IVP ONE (22:00)
--- NOTE | 2019-05-27 22:00 | Emergency Department Note ---
Disposition Clinical Impression: Nonsustained ventricular tachycardia, Gastroparesis due to DM Abdominal pain Qualifiers: Abdominal location: right lower quadrant Qualified Code(s): R10.31 - Right lower quadrant pain Hydronephrosis Qualifiers: Hydronephrosis type: other Qualified Code(s): N13.39 - Other hydronephrosis Disposition: Admitted As Inpatient Condition: Good Time of Disposition: 02:05 Abdominal Pain HPI - General Chief Complaint: ED Abdominal Pain Stated Complaint: abd pain Time Seen by Provider: 05/27/19 21:48 Source: patient, EMS Mode of arrival: EMS Nursing Notes Reviewed: Yes Vital Signs Reviewed: Yes - History of Present Illness HPI Narrative: 43-year-old male patient with history of diabetes and gastroparesis with a bowel stimulator along with insulin pump presents to department complaining of right- sided lower abdominal pain and nauseated. She did recently have a right fifth toe amputation. She points to the area where her bowel stimulator is located her pain is she points to just behind this area. Denies any fever or chills or sweats. She states the pain is intermittently intense. She is intermittently has been noted to be shaking secondary to the pain. No fevers or chills. Pt Subjective Complaint: abdominal pain Consistency: constant, Worsening Location: RLQ (Up into the epigastric area and into the chest.) Pain Severity: severe Pain Scale: 10 Quality: stabbing, sharp Radiation: epigastric, back, chest Migration to: no migration Improves with: nothing Worsens with: movement - Related Data Home Medications Medication Instructions Recorded Confirmed Cholecalciferol (D-3) [Vitamin D] 5,000 unit PO DAILY 07/25/17 05/28/19 Dexlansoprazole [Dexilant] 60 mg PO DAILY 07/25/17 05/28/19 Gabapentin [Neurontin] 300 mg PO HS PRN 07/25/17 05/28/19 Modafinil [Provigil] 200 mg PO BID 07/25/17 05/28/19 Levothyroxine Sodium [Levoxyl] 50 mcg PO QAM 05/20/19 05/28/19 Sodium Oxybate [Xyrem] 0 ml PO AD 05/20/19 05/28/19 Subcutaneous Insulin Pump [T:Slim] 1 each MC AD 05/20/19 05/28/19 Previous Rx's Medication Instructions Recorded Doxycycline 100 mg PO BID #20 capsule 05/23/19 levoFLOXacin [Levaquin] 750 mg PO DAILY #10 tablet 05/23/19 Allergies Allergy/AdvReac Type Severity Reaction Status Date / Time azithromycin [From Zithromax] Allergy Rash Verified 05/27/19 21:46 metoclopramide [From Reglan] Allergy Rash Verified 05/27/19 21:46 prochlorperazine Allergy Rash Verified 05/27/19 21:46 [From Compazine] Sulfa (Sulfonamide Allergy Rash Verified 05/27/19 21:46 Antibiotics) All systems ED: reviewed and negative except as stated. Constitutional: Denies: fever, chills, weakness, weight change Eyes: Denies: eye pain, eye discharge, vision change ENT ED: Denies: ear pain, throat pain, dental pain, hearing loss, epistaxis, congestion, dysphagia Cardiovascular: Reports: chest pain, palpitations. Denies: dyspnea on exertion, edema, syncope Respiratory: Denies: cough, dyspnea, wheezes, hemoptysis, stridor Gastrointestinal: Reports: abdominal pain, nausea. Denies: vomiting, diarrhea, constipation, hematemesis, melena, hematochezia Genitourinary: Denies: dysuria, frequency, hematuria, discharge Musculoskeletal: Denies: back pain, neck pain, arthralgia, myalgia Integumentary: Denies: rash, abrasion, lesions Neurological: Denies: headache, weakness, numbness, paresthesias, confusion, abnormal gait, vertigo Psychiatric: Denies: anxiety, depression, suicidal thoughts, homicidal thoughts, auditory hallucinations, visual hallucinations Endocrine: Denies: fatigue Abdominal Pain PMH - Past Medical History Medical history: Reports: diabetes, thyroid disease Female Surgical History: Reports: hysterectomy SENIOR SYSTEMS ARCHITECT history: Reports: no SENIOR SYSTEMS ARCHITECT history Psychiatric history: Reports: anxiety, depression - Social History Smoking status: Former smoker Alcohol use: Reports: none Drug use: Reports: none Physical Exam - General Limitations: no limitations General appearance: alert - Head Head exam: atraumatic, normocephalic, normal inspection - Eye Eye exam: Present: normal appearance, PERRL, EOMI - ENT ENT exam: normal exam, normal oropharynx, mucous membranes moist - Neck Neck exam: Present: normal inspection, full ROM, trachea midline - Chest Chest inspection: Present: normal inspection, symmetric chest wall rise - Respiratory Respiratory exam: Present: normal lung sounds bilaterally. Absent: respiratory distress, wheezes, accessory muscle use - Cardiovascular Cardiovascular exam: Present: tachycardia, normal heart sounds - Abdominal Exam Abdominal exam: Present: soft, Non-Tender, tenderness (Right lower quadrant located behind the bowel stimulator. There is no definitive McBurney's point tenderness negative Rovsing.), normal bowel sounds. Absent: distention, guarding, rebound, rigidity, organomegaly, obturator sign, heel tap sign, Martinez's sign, Rovsing's sign - Extremities Exam Extremities exam: Present: normal inspection, full ROM. Absent: tenderness, pedal edema - Expanded Lower Extremity Exam Hip/Pelvis exam: Present: normal inspection, full ROM. Absent: tenderness Upper leg exam: Present: normal inspection, full ROM. Absent: tenderness Knee exam: Present: normal inspection, full ROM. Absent: tenderness Lower leg exam: Present: normal inspection, full ROM. Absent: tenderness Ankle exam: Present: normal inspection, full ROM. Absent: tenderness Foot/toe exam: Present: normal inspection, full ROM, other (Right fifth toe amputation no obvious signs of infection). Absent: tenderness Neurovascular/Tendon exam: Absent: motor deficit, sensory deficit, tendon deficit - Back Exam Back exam: Present: normal inspection, full ROM. Absent: tenderness, CVA t enderness (R), CVA tenderness (L) - Neurological Exam Neurological exam: Present: alert, oriented X3, CN II-XII intact - Psychiatric Psychiatric exam: Present: normal affect, normal mood - Skin Skin exam: Present: warm, dry, intact, normal color. Absent: rash Course Course Narrative: Patient placed in examination room. Patient has a stimulator in place to her gastroparesis. The right lower quadrant in the area where she is having her pain. He said the wires detach before they do insert just below her left breast. She was medicated. I was concerned that she may have a kidney stone but also the fact that she did have a recent surgery a few days prior concerned about pulmonary embolism. A CTA was obtained which did not reveal any pulmonary embolism or acute chest abnormality and there was no acute dissection. I did speak with the radiologist prior to ordering this test. however there was mild right hydronephrosis but no definitive stone or obstruction. However, she had a run of nonsustained ventricular tachycardia on 2 different occasions of which could be artifact but it is difficult to ascertain. Patient admitted to the hospitalist for further observation and treatment Dr Staton - Reevaluation(s) Reevaluation #1: Patient is having mild improvement. And acquired additional pain medications. Time: 23:00 Reevaluation #2: Patient pain is now well controlled. However although her EKG did not show any acute abnormality she did have 2 runs of nonsustained ventricular tachycardia. The initial run was noted when she was shaking and felt to be artifactual. However the second occurrence she was resting comfortably and was in no distress when it occurred as I went directly in the room when it began to be seen on the monitor. It was unclear if this was artifactual as well. With this reason and pain control the patient will be admitted to be further observed. Time: 01:20 Vital Signs Temperature 98.6 F 05/27/19 21:41 Pulse Rate 111 05/27/19 21:41 Respiratory Rate 22 05/27/19 21:41 Blood Pressure 152/84 05/27/19 21:41 O2 Sat by Pulse Oximetry 99 05/27/19 21:41 Temperature 98.3 F 05/28/19 11:30 Pulse Rate 82 05/28/19 11:30 Respiratory Rate 14 05/28/19 11:30 Blood Pressure 96/59 05/28/19 11:30 O2 Sat by Pulse Oximetry 98 05/28/19 11:30 Oxygen Delivery Oxygen Delivery Room Air Abdominal Pain - Differential Diagnosis Differential Diagnosis: Likely: abdominal pain non-specific, calculus of kidney, constipation, colonic obstruction, small bowel obstruction - Medical Records Medical records reviewed: Yes I reviewed the patient's medical records. - Lab Data Lab results reviewed: Yes I reviewed the patient's lab results. Result diagrams: 05/27/19 22:00 05/27/19 22:00 Lab Results 05/27/19 05/27/19 05/27/19 Range/Units 22:00 22:00 22:20 WBC 4.7 (4.3-11.1) K/mcL RBC 3.69 L (3.82-4.97) M/mcL Hgb 11.0 L (11.5-15.4) g/dL Hct 33.3 L (35.3-44.9) % MCV 90.2 (83.0-100.0) fL MCH 29.8 (28.0-33.3) pg MCHC 33.0 (31.6-35.5) g/dL RDW 12.7 (11.5-14.5) % Plt Count 232 (140-400) K/mcL MPV 10.7 (9.4-12.4) fL Immature Gran % 0.2 (0-4) % Seg Neutrophils % 50.5 % Lymphocytes % 37.0 % Monocytes % 8.1 % Eosinophils % 3.6 % Basophils % 0.6 % Neutrophils # 2.4 (1.6-8.9) K/mcL Lymphocytes # 1.7 (0.6-4.6) K/mcL Monocytes # 0.4 (0.0-1.3) K/mcL Eosinophils # 0.2 (0.0-0.6) K/mcL Basophils # 0.0 (0.0-0.2) K/mcL Sodium 137 (136-145) mEq/L Potassium 4.1 (3.5-5.1) mEq/L Chloride 106 (98-107) mEq/L Carbon Dioxide 23 (23-29) mEq/L BUN 17 (6-20) mg/dL Creatinine 1.11 (0.60-1.20) mg/dL Est GFR ( Amer) > 60 (> 60) Est GFR (Non-Af Amer) 54 L (> 60) BUN/Creatinine Ratio 15 (6-26) Glucose 164 H (70-105) mg/dL Calculated Osmolality 289 (280-300) Lactic Acid 0.7 (0.5-2.2) mmol/L Calcium 9.1 (8.6-10.3) mg/dL Total Bilirubin 0.3 (0.3-1.0) mg/dL Direct Bilirubin 0.0 (0.0-0.2) mg/dL Indirect Bilirubin 0.3 (0.0-1.2) mg/dL AST 14 (13-39) Units/L ALT 13 (7-52) Units/L Alkaline Phosphatase 57 (34-104) Units/L Troponin I < 0.03 (< 0.04) ng/mL Serum Total Protein 7.3 (6.4-8.9) g/dL Albumin 4.2 (3.5-5.7) g/dL Globulin 3.1 (2.4-3.5) g/dL Albumin/Globulin Ratio 1.4 (1.1-2.2) Amylase 15 L (29-103) Units/L Lipase 12 (11-82) Units/L Urine Color (Yellow) Urine Clarity (Clear) Urine pH (5.0-8.0) pH Units Ur Specific [place] (1.010-1.025) Urine Protein (Neg-Trace) mg/dL Urine Glucose (UA) (Normal) mg/dL Urine Ketones (Negative) mg/dL Urine Blood (Negative) Urine Nitrite (Negative) Urine Bilirubin (Negative) Urine Urobilinogen (Normal) mg/dL Ur Leukocyte Esterase (Negative) Ur Culture Indicated? (NO) 05/27/19 Range/Units 22:38 WBC (4.3-11.1) K/mcL RBC (3.82-4.97) M/mcL Hgb (11.5-15.4) g/dL Hct (35.3-44.9) % MCV (83.0-100.0) fL MCH (28.0-33.3) pg MCHC (31.6-35.5) g/dL RDW (11.5-14.5) % Plt Count (140-400) K/mcL MPV (9.4-12.4) fL Immature Gran % (0-4) % Seg Neutrophils % % Lymphocytes % % Monocytes % % Eosinophils % % Basophils % % Neutrophils # (1.6-8.9) K/mcL Lymphocytes # (0.6-4.6) K/mcL Monocytes # (0.0-1.3) K/mcL Eosinophils # (0.0-0.6) K/mcL Basophils # (0.0-0.2) K/mcL Sodium (136-145) mEq/L Potassium (3.5-5.1) mEq/L Chloride (98-107) mEq/L Carbon Dioxide (23-29) mEq/L BUN (6-20) mg/dL Creatinine (0.60-1.20) mg/dL Est GFR ( Amer) (> 60) Est GFR (Non-Af Amer) (> 60) BUN/Creatinine Ratio (6-26) Glucose (70-105) mg/dL Calculated Osmolality (280-300) Lactic Acid (0.5-2.2) mmol/L Calcium (8.6-10.3) mg/dL Total Bilirubin (0.3-1.0) mg/dL Direct Bilirubin (0.0-0.2) mg/dL Indirect Bilirubin (0.0-1.2) mg/dL AST (13-39) Units/L ALT (7-52) Units/L Alkaline Phosphatase (34-104) Units/L Troponin I (< 0.04) ng/mL Serum Total Protein (6.4-8.9) g/dL Albumin (3.5-5.7) g/dL Globulin (2.4-3.5) g/dL Albumin/Globulin Ratio (1.1-2.2) Amylase (29-103) Units/L Lipase (11-82) Units/L Urine Color Yellow (Yellow) Urine Clarity Clear (Clear) Urine pH 6.5 (5.0-8.0) pH Units Ur Specific [place] 1.021 (1.010-1.025) Urine Protein Negative (Neg-Trace) mg/dL Urine Glucose (UA) 250 H (Normal) mg/dL Urine Ketones Negative (Negative) mg/dL Urine Blood Negative (Negative) Urine Nitrite Negative (Negative) Urine Bilirubin Negative (Negative) Urine Urobilinogen Normal (Normal) mg/dL Ur Leukocyte Esterase Negative (Negative) Ur Culture Indicated? NO (NO) - Radiology Data Radiology results reviewed: Yes I reviewed the patient's radiology results. EXAMINATION: ONE XRAY VIEW OF THE CHEST 05/27/2019 10:37 pm COMPARISON: 05/23/2018 HISTORY: ORDERING SYSTEM PROVIDED HISTORY: free air (abd and chest pain) FINDINGS: The lungs are without acute focal process. There is no effusion or pneumothorax. The cardiomediastinal silhouette is stable. The osseous structures are stable. XR/XR chest 1V portable IMPRESSION: No acute process. D/ / Jose Quiles MD / Jose Quiles MD Interpreting Provider: Jose Quiles MD - EKG Data EKG attestation: Yes I reviewed and interpreted this EKG. EKG results narrative: EKG shows a sinus tachycardia at 105 bpm, normal axis, no acute ST elevations or depressions suggesting infarction or ischemia. Normal WI interval and normal QRS duration. There is mild underlying artifact which I feel is secondary to a bowel stimulator Critical Care Time Critical Care Time: Yes Total Critical Care Time: 30 Attestation: The high probability of a clinically significant, sudden or life threatening deterioration of the patient's condition required my full and direct attention, intervention and personal management.
[2019-05-27] MEDS ORDERED: 0.9 % Sodium Chloride 1,000 ML IV ONE (22:03)
[2019-05-27] MEDS ORDERED: Isovue-370 500 ML BOTTLE IVP ONE (22:09)
[2019-05-27 22:58] LABS: Basophils % 0.6 %; Eosinophils # 0.2 K/mcL (0.0-0.6); Eosinophils % 3.6 %; Hematocrit 33.3 % (35.3-44.9); Immature Granulocytes % 0.2 % (0-4); Lymphocytes # 1.7 K/mcL (0.6-4.6); Mean Corpuscular Hemoglobin 29.8 pg (28.0-33.3); Mean Corpuscular Volume 90.2 fL (83.0-100.0); Mean Platelet Volume 10.7 fL (9.4-12.4); Monocytes # 0.4 K/mcL (0.0-1.3); Monocytes % 8.1 %; Neutrophils # 2.4 K/mcL (1.6-8.9); Platelet Count 232 K/mcL (140-400); Red Blood Count 3.69 M/mcL (3.82-4.97); Red Cell Distribution Width 12.7 % (11.5-14.5); Segmented Neutrophils % 50.5 %; White Blood Count 4.7 K/mcL (4.3-11.1)
[2019-05-27 22:59] LABS: Bilirubin,Urine Negative (Negative); Blood,Urine Negative (Negative); Clarity,Urine Clear (Clear); Color,Urine Yellow (Yellow); Glucose,Urine (UA) 250 mg/dL (Normal); Ketones,Urine Negative (Negative); Leukocyte Esterase,Urine Negative (Negative); Nitrite,Urine Negative (Negative); PH,Urine 6.5 pH Units (5.0-8.0); Protein,Urine Negative (Neg-Trace); Specific Gravity,Urine 1.021 (1.010-1.025); Urobilinogen,Urine Normal (Normal)
[2019-05-27 23:21] LABS: Alanine Aminotransferase 13 Units/L (7-52); Albumin 4.2 g/dL (3.5-5.7); Albumin/Globulin Ratio 1.4 (1.1-2.2); Alkaline Phosphatase 57 Units/L (34-104); Amylase 15 Units/L (29-103); Aspartate Amino Transferase 14 Units/L (13-39); BUN/Creatinine Ratio 15 (6-26); Bilirubin,Indirect 0.3 mg/dL (0.0-1.2); Bilirubin,Total 0.3 mg/dL (0.3-1.0); Blood Urea Nitrogen 17 mg/dL (6-20); Calcium 9.1 mg/dL (8.6-10.3); Carbon Dioxide 23 mEq/L (23-29); Chloride 106 mEq/L (98-107); Globulin 3.1 g/dL (2.4-3.5); Glucose 164 mg/dL (70-105); Lipase 12 Units/L (11-82); Osmolality,Calculated 289 (280-300); Potassium 4.1 mEq/L (3.5-5.1); Sodium 137 mEq/L (136-145); Total Protein 7.3 g/dL (6.4-8.9); Troponin I < 0.03 ng/mL (< 0.04); eGFR For African Americans > 60 (> 60); eGFR For Non-African Americans 54 (> 60)
[2019-05-28] MEDS ORDERED: *HR* HYDROmorphone (PF) 1 MG/ML SYRINGE IVP ONE (00:46)
[2019-05-28] MEDS ORDERED: Gabapentin 300 MG CAPSULE PO PRN (03:26)
[2019-05-28] MEDS ORDERED: Ondansetron 4 MG/2 ML VIAL IVP PRN (03:30)
[2019-05-28] MEDS ORDERED: D5% in Lactated Ringers 1,000 ML IVC SCH (03:30)
[2019-05-28] MEDS ORDERED: (Subcutaneous Insulin Pump [T:Slim] 1 EACH) MC SCH (03:30)
[2019-05-28] MEDS ORDERED: Ketorolac 30 MG/ML VIAL IVP PRN (03:33)
[2019-05-28] MEDS ORDERED: Naloxone 0.4 MG/ML INJ IVP PRN (03:33)
[2019-05-28] MEDS ORDERED: *HR* Dextrose 50 % in Water (Syg) 50 ML SYRINGE IVP PRN (03:34)
[2019-05-28] MEDS ORDERED: Dextrose Gel 15 GM/37.5 ML TUBE PO PRN ×2 (03:34)
[2019-05-28] MEDS ORDERED: Milk and Molasses Enema 200 ML RC ONE (03:36)
--- NOTE | 2019-05-28 03:49 | Internal Med History&Physical ---
Date of Encounter: 05/28/19 Time of Encounter: 03:48 Internal Medicine - H&P: HPI Chief complaint: abdominal pain Admitted From: Home Plans for Post Hospital Care: Transfer Inp Rehab Fac History of present illness: Dee Baum is a 43 year old woman with type 1 diabetes complicated by gastroparesis and peripheral vascular disease who is on insulin pump as well as a gastric stimulator and underwent partial amputation of the right foot fifth digit on 05/22/19 currently completing a 10 day course of oral antibiotics empirically despite clear wound margins and negative cultures. Presented to the ER complaining of pain in her right lower quadrant which is around the area where she has her stimulator. She says the pain started 2 days ago accompanied by nausea and vomiting and is gradually gotten worse to the point where she cannot tolerate anything by mouth or function normally due to exquisite pain. She says she is unable to lay flat because she feels a tearing sensation in her abdomen when she does this. In the ER due to these complaints she underwent a CT scan for dissection protocol which was unremarkable and showed mild right hydronephrosis possibly secondary to a recently passed stone and colon packed with stool. She was given multiple opiate doses to try to control her pain but remained intractable and is admitted for observation. Of note during her period of evaluation in the ER she reportedly was seen to have 2 runs of nonsustained V. tach however it is unclear if these were artefactual or not. On my assessment she is in severe pain and has a vomiting bag next to her but denies fever, chills, dysuria and diarrhea. She reports a regular bowel movement earlier in the morning. Vitals: Reviewed General: Well developed white woman lying in bed with antalgic posturing and notable distress. Skin: Warm, pale and dry. HEENT: Moist mucous membranes. No conjunctivae pallor. Neck: No lymphadenopathy. No JVD. No carotid bruits. No palpable thyroid. Chest: Normal thoracic expansion. Normal breath sounds. Clear to auscultation. Heart: Normal S1 & S2; rhythmic. No rubs or murmurs. Abdomen: Non-distended, soft and exquisitely tender to superficial palpation around right lower quadrant superior to the bulge where her gastric stimulator is. Extremities: No clubbing, cyanosis or edema. No calf tenderness. Normal distal pulses. Right foot dressing in AE bandage. Neurological: Awake, alert and oriented to person, place and time. No focal deficits. Psych: Affect appropriate. Assessment/Plan 1. Intractable abdominal pain: Unclear etiology. Abdomen CT shows no acute anomalies that would suggest a cause of this. Will monitor clinical evolution, provide analgesics as needed, antiemetics and fluids. Unclear if it is related to the placement or wires from her stimulator. 2. NSVT: Will monitor on telemetry. No prior cardiac history. 3. Constipation: Noted to have extensive stool burden on imaging. Will provide stool softeners and an enema as this could potentially contribute to her pain syndrome. 4. Diabetes: Historically poorly controlled based on her A1C. Currently has well controlled glycemic values since starting her insulin pump with a digital monitor. Will keep her on this in the interim and give diabetic diet. 5. Diabetic foot ulcer: Scheduled to complete a course of antibiotics after amputation. Past Med Surg Social Fam HX - Past Medical History Medical history: diabetes, thyroid disease Additional medical history: Gastroparesis; narcolepsy; pituitary tumor Psychiatric history: anxiety, depression - Past Surgical History Surgical History: hysterectomy, other Additional surgical history: j tube. gastric pacemaker. eye surgeries - Social History Smoking Status: Former smoker Smokeless Tobacco Status: No Alcohol use: none Drug use: none - Family History Mother Living Status: Still Living Hx Family Cardiac Disorders: Yes Hx Family GI Disorders: Yes (Obesity) Hx Family Endocrine Disorder: Yes (Diabetes) Internal Medicine - H&P: Meds Cholecalciferol (D-3) [Vitamin D] 5,000 unit PO DAILY 07/25/17 [History] Dexlansoprazole [Dexilant] 60 mg PO DAILY 07/25/17 [History] Gabapentin [Neurontin] 300 mg PO HS PRN 07/25/17 [History] Modafinil [Provigil] 200 mg PO BID 07/25/17 [History] Levothyroxine Sodium [Levoxyl] 50 mcg PO QAM 05/20/19 [History] Sodium Oxybate [Xyrem] 0 ml PO AD 05/20/19 [History] Subcutaneous Insulin Pump [T:Slim] 1 each MC AD 05/20/19 [History] Doxycycline 100 mg PO BID #20 capsule 05/23/19 [Rx] levoFLOXacin [Levaquin] 750 mg PO DAILY #10 tablet 05/23/19 [Rx] Allergy/AdvReac Type Severity Reaction Status Date / Time azithromycin [From Zithromax] Allergy Rash Verified 05/27/19 21:46 metoclopramide [From Reglan] Allergy Rash Verified 05/27/19 21:46 prochlorperazine Allergy Rash Verified 05/27/19 21:46 [From Compazine] Sulfa (Sulfonamide Allergy Rash Verified 05/27/19 21:46 Antibiotics) All Systems PM: A 10-system review of systems was performed and is negative for pertinent findings except as documented above in the HPI. - Constitutional Vitals: Temp Pulse Resp BP Pulse Ox 98.6 F 85 13 133/86 100 05/27/19 21:41 05/28/19 03:00 05/28/19 03:00 05/28/19 03:00 05/28/19 03:00 Exam: . Internal Med - H&P Results - Labs CBC & Chem 7: 05/27/19 22:00 05/27/19 22:00 Labs: Short CBC 05/27/19 Range/Units 22:00 WBC 4.7 (4.3-11.1) K/mcL Hgb 11.0 L (11.5-15.4) g/dL Hct 33.3 L (35.3-44.9) % Plt Count 232 (140-400) K/mcL Neutrophils # 2.4 (1.6-8.9) K/mcL BMP 05/27/19 22:00 Sodium 137 Potassium 4.1 Chloride 106 Carbon Dioxide 23 BUN 17 Creatinine 1.11 Glucose 164 H Calcium 9.1 Cardiac Enzymes 05/27/19 Range/Units 22:00 Troponin I < 0.03 (< 0.04) ng/mL Liver Function 05/27/19 Range/Units 22:00 Total Bilirubin 0.3 (0.3-1.0) mg/dL Direct Bilirubin 0.0 (0.0-0.2) mg/dL AST 14 (13-39) Units/L ALT 13 (7-52) Units/L Alkaline Phosphatase 57 (34-104) Units/L Albumin 4.2 (3.5-5.7) g/dL Urine 05/27/19 Range/Units 22:38 Urine Color Yellow (Yellow) Urine Clarity Clear (Clear) Urine pH 6.5 (5.0-8.0) pH Units Ur Specific [place] 1.021 (1.010-1.025) Urine Protein Negative (Neg-Trace) mg/dL Urine Glucose (UA) 250 H (Normal) mg/dL - Impressions ITS Impressions Chest X-Ray 05/27/19 22:04 IMPRESSION: No acute process. D/ / Jose Quiles MD / Jose Quiles MD Interpreting Provider: Jose Quiles MD Dissection 05/27/19 22:09 IMPRESSION: No aortic aneurysm or dissection. Mild right hydronephrosis, possibly secondary to a recently passed stone. The colon is packed with stool. D/ / Sana Horne MD / Sana Horne MD Interpreting Provider: Sana Horne MD - Time Spent With Patient Total time spent is greater than 50% in coordination of care (as documented) at patient's floor/unit and/or counseling patient:
[2019-05-28] MEDS ORDERED: Bisacodyl 10 MG RECTAL SUPPOSITORY RC ONE (04:26)
[2019-05-28] MEDS ORDERED: D5% in Water 1,000 ML IVC PRN (08:17)
[2019-05-28] MEDS ORDERED: Subcutaneous Insulin Pump [T:Slim] SQ SCH (09:00)
[2019-05-28] MEDS ORDERED: Doxycycline 100 MG CAPSULE PO SCH (09:00)
[2019-05-28] MEDS ORDERED: Cholecalciferol (D-3) 1,000 UNIT (25MCG) TABLET PO SCH (09:00)
[2019-05-28] MEDS ORDERED: MODAFINIL 200 MG PO SCH (09:00)
[2019-05-28] MEDS ORDERED: levoFLOXacin 750 MG TABLET PO SCH (09:00)
[2019-05-28 11:35] VITALS: BP 96/59
--- NOTE | 2019-05-28 14:28 | Discharge Summary ---
- NOTES TO OUTPATIENT PROVIDER Notes to Outpatient Provider: Follow-up with [facility] for her gastric pacemaker. Orders not resulted at time of discharge: Pending orders 05/27/19 22:00 ECG 12 lead ECG [ECG] Stat 05/27/19 22:47 Culture,Blood [BC] Stat 05/28/19 10:08 EKG [ECG 12 lead ECG] [ECG] Stat Date of Encounter: 05/28/19 Time of Encounter: 14:00 - Discharge Diagnosis (1) Constipation Priority: Primary Status: Acute Qualifiers: Constipation type: unspecified constipation type Qualified Code(s): K59.00 - Constipation, unspecified (2) Diabetes mellitus Priority: Secondary Status: Chronic Qualifiers: Diabetes mellitus type: type 1 Diabetes mellitus complication status: with skin complications Diabetes mellitus complication detail: with foot ulcer Qualified Code(s): E10.621 - Type 1 diabetes mellitus with foot ulcer; L97.509 - Non-pressure chronic ulcer of other part of unspecified foot with unspecified severity (3) Gastroparesis due to DM Priority: Secondary Status: Chronic Hospital course: Ms. Baum is a 43 year old female with history of type 1 diabetes, PVD, gastroparesis status post gastric pacemaker who came into the hospital with abdominal pain. CT of the abdomen revealed significant stool Edwards. Patient was given bowel regimen and one enema which did not help with her bowel movements. She was started on MiraLAX however she decided to leave AMA before completing that therapy. Her abdominal pain could be related to constipation FROM ANTIBIOTIC SIDE EFFECTS SHE WAS ON DOXYCYCLINE AND LEVAQUIN FOR HER RECENT foot infection. She was also had one run of NSVT and patient was asymptomatic. However she wanted to give before we could work this up. Patient is alert and oriented 3. She had full capacity to make her own medical decision. She decided to leave AGAINST MEDICAL ADVICE and she understand the risks behind her living including abnormal arrhythmias and possible . Discharge discussed with: patient - Time Spent with Patient Total time spent providing and/or coordinating discharge services: 42 minutes - Discharge Medications Prescriptions: Continued Gabapentin [Neurontin] 300 mg PO HS PRN PRN Reason: NeuroPATHY Cholecalciferol (D-3) [Vitamin D] 5,000 unit PO DAILY Modafinil [Provigil] 200 mg PO BID Dexlansoprazole [Dexilant] 60 mg PO DAILY Subcutaneous Insulin Pump [T:Slim] 1 each MC AD Levothyroxine Sodium [Levoxyl] 50 mcg PO QAM Sodium Oxybate [Xyrem] 0 ml PO AD Doxycycline 100 mg PO BID #20 capsule levoFLOXacin [Levaquin] 750 mg PO DAILY #10 tablet Home Medications: Cholecalciferol (D-3) [Vitamin D] 5,000 unit PO DAILY 07/25/17 [History] Dexlansoprazole [Dexilant] 60 mg PO DAILY 07/25/17 [History] Gabapentin [Neurontin] 300 mg PO HS PRN 07/25/17 [History] Modafinil [Provigil] 200 mg PO BID 07/25/17 [History] Levothyroxine Sodium [Levoxyl] 50 mcg PO QAM 05/20/19 [History] Sodium Oxybate [Xyrem] 0 ml PO AD 05/20/19 [History] Subcutaneous Insulin Pump [T:Slim] 1 each MC AD 05/20/19 [History] Doxycycline 100 mg PO BID #20 capsule 05/23/19 [Rx] levoFLOXacin [Levaquin] 750 mg PO DAILY #10 tablet 05/23/19 [Rx] Allergies/Adverse Reactions: Allergy/AdvReac Type Severity Reaction Status Date / Time azithromycin [From Zithromax] Allergy Rash Verified 05/27/19 21:46 metoclopramide [From Reglan] Allergy Rash Verified 05/27/19 21:46 prochlorperazine Allergy Rash Verified 05/27/19 21:46 [From Compazine] Sulfa (Sulfonamide Allergy Rash Verified 05/27/19 21:46 Antibiotics) Date of admission: 05/28/19 02:49 Primary care physician: Nikolas Crenshaw MD - Constitutional Vitals: Temp Pulse Resp BP Pulse Ox 98.3 F 82 14 96/59 98 05/28/19 11:30 05/28/19 11:30 05/28/19 11:30 05/28/19 11:30 05/28/19 11:30 Exam: .General: Patient is alert, oriented 3. Head: Atraumatic, normal inspection, normocephalic. Eye: EOMI, PERRLA, no scleral icterus noted. ENT: Mucous membranes moist. No odontogenic infection noted. Neck: Normal inspection, no meningismus. Respiratory: No respiratory distress, rhonchi, or wheezes noted. Cardiovascular: Regular rate and regular rhythm, S1 and S2 audible. No murmurs, rubs, or gallops. GI: Soft, nondistended, normal bowel sounds. Extremities:No joint swelling, pedal edema, or tenderness noted. Neurological: Alert, oriented 3, no focal deficits. Psychiatric: normal affect, normal mood. Skin: Dry, intact, warm. Normal color. No rashes. - Patient Status Disposition: Left Against Medical Advice Condition: Good Functional capacity at discharge: independent ambulation Overall status at discharge: patient is not back to baseline - Discharge Instructions Follow Up With: Nikloas Crenshaw MD [Primary Care Provider] - - Diet and Activity Activity: resume usual activities as tolerated Diet: diabetic diet
--- NOTE | 2019-05-29 12:53 | Electrocardiograph Report ---
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
--- NOTE | 2019-05-29 17:39 | Electrocardiograph Report ---
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
== END 2019-05-28 13:51 | disposition left against medical advice (07) ==
LOC: 2ANU 21:36 → EMEROOARM 21:36 → SUATTDRO 05-28 02:49 → 2ANU 05-28 03:28
PROVIDERS: ADMIT Internal Medicine; ATTEND Internal Medicine

== ENCOUNTER 2019-08-15 13:54 | Inpatient (IN) ==
[2019-08-15 15:00] LABS: Basophils % 0.5 %; Eosinophils # 0.3 K/mcL (0.0-0.6); Eosinophils % 5.3 %; Hematocrit 31.4 % (35.3-44.9); Hemoglobin 10.4 g/dL (11.5-15.4); Immature Granulocytes % 0.2 % (0-4); Lymphocytes # 1.5 K/mcL (0.6-4.6); Lymphocytes % 25.8 %; Mean Corpuscular HGB Conc 33.1 g/dL (31.6-35.5); Mean Corpuscular Hemoglobin 30.3 pg (28.0-33.3); Mean Corpuscular Volume 91.5 fL (83.0-100.0); Mean Platelet Volume 10.3 fL (9.4-12.4); Monocytes # 0.3 K/mcL (0.0-1.3); Monocytes % 5.9 %; Neutrophils # 3.6 K/mcL (1.6-8.9); Platelet Count 214 K/mcL (140-400); Red Blood Count 3.43 M/mcL (3.82-4.97); Red Cell Distribution Width 13.2 % (11.5-14.5); Segmented Neutrophils % 62.3 %; White Blood Count 5.8 K/mcL (4.3-11.1)
[2019-08-15] MEDS ORDERED: *HR* HYDROcodone/Acet 5/325 mg TABLET PO ONE (15:07)
[2019-08-15 15:15] LABS: BUN/Creatinine Ratio 24 (6-26); Blood Urea Nitrogen 21 mg/dL (6-20); C-Reactive Protein < 5 mg/L (Less than 10); Calcium 9.1 mg/dL (8.6-10.3); Carbon Dioxide 27 mEq/L (23-29); Chloride 103 mEq/L (98-107); Glucose 236 mg/dL (70-105); Osmolality,Calculated 291 (280-300); Potassium 4.5 mEq/L (3.5-5.1); Sodium 135 mEq/L (136-145); eGFR For African Americans > 60 (> 60); eGFR For Non-African Americans > 60 (> 60)
[2019-08-15] MEDS ORDERED: Ibuprofen 600 MG TABLET PO ONE (16:02)
[2019-08-15] MEDS ORDERED: 0.9 % Sodium Chloride 1,000 ML IVC STA (16:29)
[2019-08-15] MEDS ORDERED: Naloxone 0.4 MG/ML INJ IVP PRN (18:07)
[2019-08-15] MEDS ORDERED: Ondansetron 4 MG/2 ML VIAL IVP PRN (18:07)
[2019-08-15] MEDS ORDERED: Gabapentin 300 MG CAPSULE PO PRN (18:13)
[2019-08-15] MEDS ORDERED: *HR* OxyCODONE Immed Rel 5 MG TABLET PO PRN (18:15)
[2019-08-15] MEDS: (Subcutaneous Insulin Pump [T:Slim] 1 EACH) SQ SCH (20:56)
[2019-08-15] MEDS: Gabapentin 300 MG CAPSULE PO SCH (20:59)
[2019-08-15] MEDS: *HR* Heparin 5,000 UNIT/ML VIAL SQ SCH (21:06)
[2019-08-16] MEDS: Acetaminophen 325 MG TABLET PO PRN ×3 (00:03→14:51)
[2019-08-16] MEDS ORDERED: Acetaminophen IV 1,000 MG/100 ML INFUS..BTL IVPB ONE ×2 (02:48→20:47)
[2019-08-16] MEDS ORDERED: *HR* LORazepam 2 MG/ML VIAL IVP ONE (03:34)
[2019-08-16] MEDS: *HR* Heparin 5,000 UNIT/ML VIAL SQ SCH ×3 (05:44→23:00)
[2019-08-16 05:52] LABS: Basophils % 0.7 %; Eosinophils # 0.2 K/mcL (0.0-0.6); Eosinophils % 5.5 %; Immature Granulocytes % 0.2 % (0-4); Lymphocytes # 1.5 K/mcL (0.6-4.6); Lymphocytes % 34.9 %; Mean Corpuscular HGB Conc 32.1 g/dL (31.6-35.5); Mean Corpuscular Hemoglobin 29.8 pg (28.0-33.3); Mean Corpuscular Volume 92.7 fL (83.0-100.0); Mean Platelet Volume 10.9 fL (9.4-12.4); Monocytes # 0.4 K/mcL (0.0-1.3); Monocytes % 8.4 %; Neutrophils # 2.2 K/mcL (1.6-8.9); Platelet Count 178 K/mcL (140-400); Red Blood Count 3.02 M/mcL (3.82-4.97); Red Cell Distribution Width 13.3 % (11.5-14.5); Segmented Neutrophils % 50.3 %; White Blood Count 4.4 K/mcL (4.3-11.1)
[2019-08-16 06:13] LABS: Albumin 3.6 g/dL (3.5-5.7); Albumin/Globulin Ratio 1.4 (1.1-2.2); Bilirubin,Direct 0.1 mg/dL (0.0-0.2); Bilirubin,Indirect 0.2 mg/dL (0.0-1.2); Bilirubin,Total 0.3 mg/dL (0.3-1.0); Globulin 2.6 g/dL (2.4-3.5); Total Protein 6.2 g/dL (6.4-8.9)
[2019-08-16 06:36] LABS: Folate 6.2 ng/mL (3.0-16.0)
[2019-08-16 06:37] LABS: Estimated Average Glucose 206 mg/dl
[2019-08-16 06:41] LABS: Vitamin B12 > 1500 pg/mL (250-1100)
[2019-08-16 06:43] LABS: % Iron Saturation 46 % (15-50); BUN/Creatinine Ratio 21 (6-26); Blood Urea Nitrogen 19 mg/dL (6-20); Calcium 8.5 mg/dL (8.6-10.3); Carbon Dioxide 25 mEq/L (23-29); Chloride 106 mEq/L (98-107); Ferritin 22 ng/mL (10-120); Glucose 100 mg/dL (70-105); Iron 132 mcg/dL (50-170); Osmolality,Calculated 292 (280-300); Potassium 4.1 mEq/L (3.5-5.1); Sodium 140 mEq/L (136-145); Transferrin 207 mg/dL (203-362); eGFR For African Americans > 60 (> 60); eGFR For Non-African Americans > 60 (> 60)
[2019-08-16] MEDS: Gabapentin 300 MG CAPSULE PO SCH ×4 (08:51→23:01)
[2019-08-16] MEDS ORDERED: Multivit/Ca/Min/Fe/FA 1 TAB TABLET PO SCH (09:00)
[2019-08-16] MEDS ORDERED: Cholecalciferol (D-3) 1,000 UNIT (25MCG) TABLET PO SCH (09:00)
[2019-08-16] MEDS ORDERED: Iron Sucrose Complex 250 MG in 0.9 % Sodium Chloride 250 ML IVPB SCH (09:00)
[2019-08-16] MEDS: (Subcutaneous Insulin Pump [T:Slim] 1 EACH) SQ SCH (19:01)
[2019-08-16 23:13] VITALS: BP 99/60
== END 2019-08-17 01:30 | DRG 638 ==
LOC: 3NENU 13:54 → EMEROOARM 13:54 → SUATTDRO 16:40 → 3NENU 18:59
PROVIDERS: ADMIT Pharmacist; ATTEND Pharmacist

== ENCOUNTER 2020-06-11 01:37 | Observation (INO) ==
[2020-06-11] MEDS ORDERED: 0.9 % Sodium Chloride 1,000 ML IVC ONE (02:29)
[2020-06-11] MEDS ORDERED: Famotidine 20 MG/2 ML VIAL IVP ONE (02:32)
[2020-06-11 03:38] LABS: Basophils % 0.1 %; Eosinophils # 0.1 K/mcL (0.0-0.6); Eosinophils % 1.5 %; Hematocrit 33.7 % (35.3-44.9); Hemoglobin 11.2 g/dL (11.5-15.4); Immature Granulocytes % 0.3 % (0-4); Lymphocytes # 1.9 K/mcL (0.6-4.6); Lymphocytes % 28.1 %; Mean Corpuscular HGB Conc 33.2 g/dL (31.6-35.5); Mean Corpuscular Hemoglobin 31.4 pg (28.0-33.3); Mean Corpuscular Volume 94.4 fL (83.0-100.0); Mean Platelet Volume 10.8 fL (9.4-12.4); Monocytes # 0.5 K/mcL (0.0-1.3); Neutrophils # 4.2 K/mcL (1.6-8.9); Platelet Count 199 K/mcL (140-400); Red Blood Count 3.57 M/mcL (3.82-4.97); Red Cell Distribution Width 13.2 % (11.5-14.5); White Blood Count 6.7 K/mcL (4.3-11.1)
[2020-06-11 03:53] LABS: BUN/Creatinine Ratio 19 (6-26); Blood Urea Nitrogen 18 mg/dL (6-20); C-Reactive Protein 12 mg/L (Less than 10); Calcium 9.1 mg/dL (8.6-10.3); Carbon Dioxide 22 mEq/L (23-29); Chloride 109 mEq/L (98-107); Glucose 86 mg/dL (70-105); Osmolality,Calculated 291 (280-300); Potassium 4.1 mEq/L (3.5-5.1); Sodium 140 mEq/L (136-145); eGFR For African Americans > 60 (> 60); eGFR For Non-African Americans > 60 (> 60)
[2020-06-11 03:55] LABS: Bilirubin,Urine Negative (Negative); Blood,Urine Negative (Negative); Clarity,Urine Clear (Clear); Color,Urine Colorless (Yellow); Glucose,Urine (UA) Normal (Normal); Ketones,Urine Negative (Negative); Leukocyte Esterase,Urine Negative (Negative); Nitrite,Urine Negative (Negative); Protein,Urine Negative (Neg-Trace); Specific Gravity,Urine 1.011 (1.010-1.025); Urobilinogen,Urine Normal (Normal)
[2020-06-11] MEDS ORDERED: Nitroglycerin 1 INCH/GM PACKET TP ONE (04:42)
[2020-06-11] MEDS ORDERED: methylPREDNISolone 125 MG/2 ML VIAL IVP ONE (04:54)
[2020-06-11] MEDS ORDERED: EPINEPHrine 1 MG/ML VIAL IM ONE (05:07)
[2020-06-11] MEDS ORDERED: EPINEPHrine 1 MG/ML VIAL IM PRN (06:26)
[2020-06-11] MEDS ORDERED: Ondansetron 4 MG/2 ML VIAL IVP PRN (06:27)
[2020-06-11] MEDS ORDERED: Naloxone 0.4 MG/ML INJ IVP PRN (06:27)
[2020-06-11] MEDS ORDERED: Pyridostigmine Br 60 MG TABLET PO SCH (06:30)
[2020-06-11 06:46] LABS: Adenovirus Not Detected (Not Detect); Bordetella Pertussis Not Detected (Not Detect); Chlamydophila pneumoniae Not Detected (Not Detect); Coronavirus 229E Not Detected (Not Detect); Coronavirus HKU1 Not Detected (Not Detect); Coronavirus NL63 Not Detected (Not Detect); Coronavirus OC43 Not Detected (Not Detect); Human Metapneumovirus Not Detected (Not Detect); Human Rhinovirus/Enterovirus Not Detected (Not Detect); Influenza A Subtype 2009 H1 Not Detected (Not Detect); Influenza B Not Detected (Not Detect); Mycoplasma pneumoniae Not Detected (Not Detect); Parainfluenza Virus 1 Not Detected (Not Detect); Parainfluenza Virus 2 Not Detected (Not Detect); Parainfluenza Virus 3 Not Detected (Not Detect); Parainfluenza Virus 4 Not Detected (Not Detect); Respiratory Syncytial Virus Not Detected (Not Detect)
[2020-06-11] MEDS: modafiniL 100 MG TABLET PO SCH ×2 (08:25→20:41)
[2020-06-11] MEDS: Aspirin 81 MG TAB.CHEW PO SCH (08:25)
[2020-06-11] MEDS: 0.9 % Sodium Chloride 1,000 ML IVC SCH ×2 (08:26→20:40)
[2020-06-11] MEDS: Subcutaneous Insulin Pump SQ SCH (08:27)
[2020-06-11 11:15] LABS: Thyroid Stimulating Hormone 16.866 mcIU/mL (0.340-5.600)
[2020-06-12 00:48] LABS: Basophils % 0.1 %; Eosinophils # 0.1 K/mcL (0.0-0.6); Eosinophils % 1.5 %; Hematocrit 29.1 % (35.3-44.9); Hemoglobin 9.7 g/dL (11.5-15.4); Immature Granulocytes % 0.2 % (0-4); Lymphocytes # 2.1 K/mcL (0.6-4.6); Lymphocytes % 26.1 %; Mean Corpuscular HGB Conc 33.3 g/dL (31.6-35.5); Mean Corpuscular Hemoglobin 30.9 pg (28.0-33.3); Mean Corpuscular Volume 92.7 fL (83.0-100.0); Mean Platelet Volume 10.6 fL (9.4-12.4); Monocytes # 0.7 K/mcL (0.0-1.3); Neutrophils # 5.1 K/mcL (1.6-8.9); Platelet Count 221 K/mcL (140-400); Red Blood Count 3.14 M/mcL (3.82-4.97); Red Cell Distribution Width 13.2 % (11.5-14.5); Segmented Neutrophils % 63.1 %
[2020-06-12 01:40] LABS: BUN/Creatinine Ratio 24 (6-26); Blood Urea Nitrogen 21 mg/dL (6-20); Calcium 8.8 mg/dL (8.6-10.3); Carbon Dioxide 22 mEq/L (23-29); Chloride 108 mEq/L (98-107); Glucose 137 mg/dL (70-105); Osmolality,Calculated 289 (280-300); Phosphorous 3.5 mg/dL (2.7-4.5); Sodium 137 mEq/L (136-145); eGFR For African Americans > 60 (> 60); eGFR For Non-African Americans > 60 (> 60)
[2020-06-12] MEDS: Subcutaneous Insulin Pump SQ SCH (05:55)
[2020-06-12 07:25] VITALS: BP 125/79
[2020-06-12] MEDS: Aspirin 81 MG TAB.CHEW PO SCH (08:26)
[2020-06-12] MEDS: modafiniL 100 MG TABLET PO SCH (08:26)
[2020-06-12 12:24] LABS: Triiodothyronine (T3) Total 1.33 ng/mL (0.87-1.78)
== END 2020-06-12 11:30 | disposition home or self-care (01) ==
LOC: EMEROOARM 01:37 → 3BNU 01:37 → SUATTDRO 05:28 → 3BNU 07:56
PROVIDERS: ADMIT Family Medicine; ATTEND Internal Medicine

== ENCOUNTER 2020-08-07 12:13 | Observation (INO) ==
[2020-08-07 12:44] LABS: Basophils % 0.4 %; Eosinophils # 0.2 K/mcL (0.0-0.6); Eosinophils % 5.2 %; Hematocrit 35.9 % (35.3-44.9); Hemoglobin 11.4 g/dL (11.5-15.4); Immature Granulocytes % 0.2 % (0-4); Lymphocytes # 1.2 K/mcL (0.6-4.6); Lymphocytes % 26.1 %; Mean Corpuscular HGB Conc 31.8 g/dL (31.6-35.5); Mean Corpuscular Hemoglobin 29.5 pg (28.0-33.3); Mean Corpuscular Volume 92.8 fL (83.0-100.0); Mean Platelet Volume 10.5 fL (9.4-12.4); Monocytes # 0.5 K/mcL (0.0-1.3); Neutrophils # 2.7 K/mcL (1.6-8.9); Platelet Count 256 K/mcL (140-400); Red Blood Count 3.87 M/mcL (3.82-4.97); Red Cell Distribution Width 12.6 % (11.5-14.5); Segmented Neutrophils % 58.1 %; White Blood Count 4.6 K/mcL (4.3-11.1)
[2020-08-07 12:50] LABS: INR 0.9
[2020-08-07 12:53] LABS: Activated Partial Thrombo Time 34.7 Seconds (26.0-36.0)
[2020-08-07] MEDS ORDERED: Isovue-370 500 ML BOTTLE IVP ONE (13:10)
[2020-08-07 13:24] LABS: BUN/Creatinine Ratio 15 (6-26); Blood Urea Nitrogen 14 mg/dL (6-20); Carbon Dioxide 23 mEq/L (23-29); Chloride 107 mEq/L (98-107); Glucose 169 mg/dL (70-105); Osmolality,Calculated 290 (280-300); Potassium 4.2 mEq/L (3.5-5.1); Sodium 138 mEq/L (136-145); Troponin I < 0.03 ng/mL (< 0.04); eGFR For African Americans > 60 (> 60); eGFR For Non-African Americans > 60 (> 60)
[2020-08-07] MEDS ORDERED: Aspirin 81 MG TAB.CHEW PO STA (14:19)
[2020-08-07] MEDS ORDERED: Acetaminophen 325 MG TABLET PO PRN (16:19)
[2020-08-07] MEDS ORDERED: Ondansetron 4 MG/2 ML VIAL IVP PRN (16:19)
[2020-08-07] MEDS ORDERED: *HR* HYDROcodone/Acet 5/325 mg TABLET PO PRN (16:19)
[2020-08-07] MEDS ORDERED: Naloxone 0.4 MG/ML INJ IVP PRN (16:19)
[2020-08-07] MEDS ORDERED: Perflutren Lipid Microsphere 1.3 ML in 0.9 % Sodium Chloride 8.7 ML IVP PRN (16:23)
[2020-08-07] MEDS ORDERED: Nitroglycerin 0.4 MG TAB.SUBL SL PRN (16:27)
[2020-08-07 16:39] LABS: Cholesterol 154 mg/dL (< 200); HDL Cholesterol 76 mg/dL (40-59); LDL Cholesterol,Calculated 67 mg/dL (< 100); Triglycerides 53 mg/dL (< 150)
[2020-08-07] MEDS ORDERED: *HR* Heparin 5,000 UNIT/ML VIAL IVP ONE (17:04)
[2020-08-07] MEDS ORDERED: *HR* Heparin 5,000 UNIT/ML VIAL IVP PRN ×2 (17:04)
[2020-08-07] MEDS ORDERED: Heparin 25,000UNIT/250ML 1/2NS 25,000 UNIT/250 ML IV.SOLN IVC SCH (17:15)
[2020-08-07 18:15] LABS: INR 0.9; Prothrombin Time 10.1 Seconds (9.4-12.1)
[2020-08-07 18:17] LABS: Heparin anti-factor XA UFH < 0.04 IU/mL (0.30-0.70)
[2020-08-07 18:25] LABS: C-Reactive Protein < 5 mg/L (Less than 10)
[2020-08-07 18:26] LABS: Troponin I < 0.03 ng/mL (< 0.04)
[2020-08-07 18:59] LABS: Estimated Average Glucose 171 mg/dl
[2020-08-08 01:34] LABS: Basophils % 0.7 %; Eosinophils # 0.2 K/mcL (0.0-0.6); Eosinophils % 4.6 %; Hematocrit 32.5 % (35.3-44.9); Hemoglobin 10.5 g/dL (11.5-15.4); Immature Granulocytes % 0.2 % (0-4); Lymphocytes # 1.5 K/mcL (0.6-4.6); Lymphocytes % 33.8 %; Mean Corpuscular HGB Conc 32.3 g/dL (31.6-35.5); Mean Corpuscular Hemoglobin 29.7 pg (28.0-33.3); Mean Corpuscular Volume 92.1 fL (83.0-100.0); Mean Platelet Volume 10.4 fL (9.4-12.4); Monocytes # 0.5 K/mcL (0.0-1.3); Monocytes % 11.3 %; Neutrophils # 2.2 K/mcL (1.6-8.9); Platelet Count 221 K/mcL (140-400); Red Blood Count 3.53 M/mcL (3.82-4.97); Red Cell Distribution Width 12.8 % (11.5-14.5); Segmented Neutrophils % 49.4 %; White Blood Count 4.5 K/mcL (4.3-11.1)
[2020-08-08 01:48] LABS: Alanine Aminotransferase 23 Units/L (7-52); Albumin 3.7 g/dL (3.5-5.7); Albumin/Globulin Ratio 1.4 (1.1-2.2); Alkaline Phosphatase 74 Units/L (34-104); Aspartate Amino Transferase 23 Units/L (13-39); BUN/Creatinine Ratio 15 (6-26); Bilirubin,Total 0.4 mg/dL (0.3-1.0); Blood Urea Nitrogen 15 mg/dL (6-20); Calcium 8.5 mg/dL (8.6-10.3); Carbon Dioxide 24 mEq/L (23-29); Chloride 110 mEq/L (98-107); Globulin 2.7 g/dL (2.4-3.5); Glucose 154 mg/dL (70-105); Osmolality,Calculated 292 (280-300); Phosphorous 3.8 mg/dL (2.7-4.5); Sodium 139 mEq/L (136-145); Total Protein 6.4 g/dL (6.4-8.9); eGFR For African Americans > 60 (> 60); eGFR For Non-African Americans > 60 (> 60)
[2020-08-08 06:58] VITALS: BP 103/66
[2020-08-08] MEDS ORDERED: Subcutaneous Insulin Pump [T:Slim] SQ SCH (07:45)
[2020-08-08] MEDS ORDERED: lisinopriL 5 MG TABLET PO SCH (09:00)
[2020-08-08] MEDS ORDERED: Metoprolol XL (24 HR) Succ 25 MG TAB.ER.24H PO SCH (09:00)
[2020-08-08] MEDS ORDERED: CLINDAMYCIN PHOSPHATE TP SCH (09:00)
[2020-08-08] MEDS ORDERED: Cholecalciferol (D-3) 1,000 UNIT (25MCG) TABLET PO SCH (09:00)
[2020-08-08] MEDS ORDERED: Aspirin 81 MG TAB.CHEW PO SCH (09:00)
[2020-08-08] MEDS ORDERED: Isosorbide MONOnitrate (24 HR) 30 MG TAB.ER.24H PO SCH (11:30)
[2020-08-08] MEDS ORDERED: modafiniL 100 MG TABLET PO SCH (12:00)
[2020-08-08] MEDS ORDERED: Pyridostigmine Br 60 MG TABLET PO SCH (12:00)
== END 2020-08-08 13:16 | disposition left against medical advice (07) ==
LOC: SUATTDRO → 3BNU 12:13 → EMEROOARM 12:13 → SUATTDRO 16:46 → 3BNU 17:24
PROVIDERS: ADMIT Internal Medicine; ATTEND Internal Medicine